=== PATIENT | female | born 1970 | race Two or more races ===

== ENCOUNTER → 2016-07-16 | Outpatient (CLI) | payer MEDICARE, OTHER ==
--- NOTE | 2016-07-16 10:52 | MM ---
Reason for exam: clinical finding. Last mammogram was performed 8 months ago. History: Family history of breast cancer in paternal cousin. Benign US biopsy breast VAD LT of the left breast, November 11, 2014. Excisional biopsy of the left breast, September 15, 2007. Benign US left CoreBiopsy of both breasts, August 15, 2007. Took hormonal contraceptives for 1 year beginning at age 19. Indicated problem(s): pain in the left breast. Physical Findings: Nurse did not find any significant physical abnormalities on exam. MG 3D Diag Mammo W/Cad ANTOLIN Bilateral CC and MLO view(s) were taken. Prior study comparison: November 04, 2015, bilateral MG 3d screening mammo w/cad. May 05, 2015, left breast MG 3d diag mammo w/cad LT. There are scattered fibroglandular densities. No suspicious calcifications are seen. No significant new findings when compared with previous films. These results were verbally communicated with the patient and result sheet given to the patient on 07/16/16. ASSESSMENT: Negative, BI-RAD 1 RECOMMENDATION: Return to routine screening mammogram schedule for both breasts. Manage patient on a clinical basis.
== END | disposition home or self-care (01) ==
LOC: RADMAMWWP 08:16
PROVIDERS: ATTEND Family Medicine
DX: N64.4 Mastodynia (principal)
CPT/HCPCS: G0204; G0279

== ENCOUNTER → 2017-09-13 | Outpatient (CLI) | payer MEDICARE, OTHER ==
--- NOTE | 2017-09-15 10:46 | MM ---
Reason for exam: screening (asymptomatic). Last mammogram was performed 1 year and 2 months ago. History: Family history of breast cancer in paternal cousin. Benign US biopsy breast VAD LT of the left breast, November 11, 2014. Excisional biopsy of the left breast, September 15, 2007. Benign US left CoreBiopsy of both breasts, August 15, 2007. Took hormonal contraceptives for 1 year beginning at age 19. Physical Findings: A clinical breast exam by your physician is recommended on an annual basis and results should be correlated with mammographic findings. MG 3D Screening Mammo W/Cad Bilateral CC and MLO view(s) were taken. Prior study comparison: July 16, 2016, bilateral MG 3d diag mammo w/cad ANTOLIN. November 04, 2015, bilateral MG 3d screening mammo w/cad. There are scattered fibroglandular densities. Previous mammotome biopsy in the left breast. No significant changes when compared with prior studies. ASSESSMENT: Benign, BI-RAD 2 RECOMMENDATION: Routine screening mammogram of both breasts in 1 year.
== END | disposition home or self-care (01) ==
LOC: RADMAMWWP 08:38
PROVIDERS: ATTEND Family Medicine
DX: Z12.31 Encounter for screening mammogram for malignant neoplasm of breast (principal)
CPT/HCPCS: 77063; 77067

== ENCOUNTER → 2018-09-19 | Outpatient (CLI) | payer MEDICARE, OTHER ==
--- NOTE | 2018-09-19 09:23 | MM ---
Reason for exam: clinical finding. Last mammogram was performed 1 year ago. History: Family history of breast cancer in paternal cousin. Benign US biopsy breast VAD LT of the left breast, November 11, 2014. Excisional biopsy of the left breast, September 15, 2007. Benign US left CoreBiopsy of both breasts, August 15, 2007. Taking hormonal contraceptives beginning at age 19. Indicated problem(s): pain in the left breast. Physical Findings: Nurse did not find any significant physical abnormalities on exam. MG 3D Diag Mammo W/Cad ANTOLIN Bilateral CC, MLO, and XCCL view(s) were taken. Prior study comparison: September 13, 2017, bilateral MG 3d screening mammo w/cad. July 16, 2016, bilateral MG 3d diag mammo w/cad ANTOLIN. There are scattered fibroglandular densities. Left biopsy marker noted. These results were verbally communicated with the patient and result sheet given to the patient on 09/19/18. ASSESSMENT: Negative, BI-RAD 1 RECOMMENDATION: Routine screening mammogram of both breasts in 1 year.
--- NOTE | 2018-09-19 09:24 | USB ---
Reason for exam: clinical finding. History: Family history of breast cancer in paternal cousin. Benign US biopsy breast VAD LT of the left breast, November 11, 2014. Excisional biopsy of the left breast, September 15, 2007. Benign US left CoreBiopsy of both breasts, August 15, 2007. Taking hormonal contraceptives beginning at age 19. Indicated problem(s): pain in the left breast. US Breast LT Left complete breast ultrasound includes all four quadrants, the retroareolar region and axilla. Finding demonstrates no cystic or solid lesion seen. These results were verbally communicated with the patient and result sheet given to the patient on 09/19/18. ASSESSMENT: Negative, BI-RAD 1 RECOMMENDATION: Routine screening mammogram of both breasts in 1 year. Manage patient on a clinical basis.
== END ==
LOC: RADMAMWWP 08:03
PROVIDERS: ATTEND Family Medicine
DX: N64.4 Mastodynia (principal)
CPT/HCPCS: 77066; 76641; G0279; 77062

== ENCOUNTER 2019-02-26 06:36 | Day surgery (SDC) | payer MEDICARE, OTHER ==
[2019-02-21 15:56] VITALS: BMI 39.5
[~2019-02-26 06:36] MED LIST: LACTATED RINGERS 1,000 ML IV SCH; LIDOCAINE 1% 20 ML VIAL (10MG/ML) FOR IV START INTRADERMA PRN
[2019-02-26 07:18] VITALS: TEMP 97.4
[2019-02-26 07:25] LABS: Glucose,Whole Blood 122 mg/dL (75-99)
[2019-02-26] MEDS ORDERED: LIDOCAINE 1% INJ 10MG/ML (20 ML MDV) ONE (07:36)
[2019-02-26] MEDS ORDERED: fentaNYL (PF) 50 MCG/ML 2 ML AMP ONE (07:36)
[2019-02-26] MEDS ORDERED: MIDAZOLAM 2 MG/2 ML VIAL ONE (07:36)
[2019-02-26] MEDS ORDERED: PROPOFOL 10 MG/ML 20 ML VIAL IV ONE (07:36)
--- NOTE | 2019-02-26 07:44 | P.GSHP ---
History of Present Illness H&P Date: 02/26/19 Chief Complaint: GERD Patient here today for upper endoscopy. Complaints of bad reflux. Also has complaints of upper abdominal pain and frequent stools after bowel movements. History of previous cholecystectomy. No rectal bleeding or melena. No dysphagia. Past Medical History Past Medical History: Asthma, Diabetes Mellitus, GERD/Reflux, Hypertension Additional Past Medical History / Comment(s): ASTHMA CHILD. TOLD A MASS/CYST ON LIVER, "NOT TO WORRY ABOUT IT." C/O GASTRITIS, ABD PAIN OCC FOR PAST MO. History of Any Multi-Drug Resistant Organisms: None Reported Past Surgical History: Back Surgery, Breast Surgery, Cholecystectomy, Tubal Ligation, Uterine Ablation Additional Past Surgical History / Comment(s): LT BREAST BIOPSY X3. NOVASURE ABLATION 2018. Past Anesthesia/Blood Transfusion Reactions: Motion Sickness Additional Past Anesthesia/Blood Transfusion Reaction / Comment(s): DONATES PLASMA Smoking Status: Never smoker - Past Family History Mother Family Medical History: Asthma Father Family Medical History: Hypertension Medications and Allergies Home Medications Medication Instructions Recorded Confirmed Type Ibuprofen [Motrin] 800 mg PO TID PRN 04/09/16 02/26/19 History Lisinopril (Unknown Dose) 1 tab PO DAILY 02/21/19 02/26/19 History Metformin (Unknown Dose) 1 tab PO DAILY 02/21/19 02/26/19 History Allergies Allergy/AdvReac Type Severity Reaction Status Date / Time No Known Allergies Allergy Verified 02/21/19 15:35 Surgical - Exam Vital Signs Temp Pulse Resp BP Pulse Ox 97.4 F L 70 14 113/70 98 02/26/19 07:14 02/26/19 07:14 02/26/19 07:14 02/26/19 07:14 02/26/19 07:14 Physical exam: General: Well-developed, well-nourished HEENT: Normocephalic, sclerae nonicteric Abdomen: Nontender, nondistended Extremities: No edema Neuro: Alert and oriented Results - Labs Abnormal Lab Results - Last 24 Hours (Table) 02/26/19 Range/Units 07:20 POC Glucose (mg/dL) 122 H (75-99) mg/dL Assessment and Plan (1) GERD (gastroesophageal reflux disease) Narrative/Plan: Will proceed with upper endoscopy at this time Current Visit: Yes Status: Acute Code(s): K21.9 - GASTRO-ESOPHAGEAL REFLUX DISEASE WITHOUT ESOPHAGITIS SNOMED Code(s): 800988210
--- NOTE | 2019-02-26 07:51 | P.PCN ---
Date of Procedure: 02/26/19 Procedure(s) Performed: Preoperative Dx: GERD Postoperative Dx: Mild distal esophagitis, mild gastritis Procedure: EGD with Bx Anesthesia: Sedation Endoscopist: Dr. Kim Specimens: Antrum, duodenum, distal esophagus Endoscopic Procedure: The patient was on the endoscopy table in the left decubitus position. The Olympus gastroscope was inserted into the oropharynx and passed under direct visualization to the region of the third portion of the duodenum. From that point the scope was slowly withdrawn inspecting all surfaces carefully. There were no neoplastic inflammatory or polypoid lesions throughout the duodenum. Biopsies of the duodenum took place. The pylorus was widely patent. The stomach was carefully inspected. There was gastritis present. Primarily in the prepyloric region. No ulcerations were seen. A few superficial erosions were identified. A biopsy of the antrum took place to rule out H. pylori. Retroflexion revealed a normal hiatus. The esophagus was then carefully examined. There was mild distal esophagitis present. This was less than 1 cm in length. This was non-circumferential. Biopsy of the distal esophagus took place. The remainder the esophagus appeared normal. The patient was then taken to the recovery room in stable condition per anesthesia guideli omar. Recommendations: Await biopsy results. Begin Prilosec and Carafate.
[2019-02-26 08:12] VITALS: BP 131/76; PULSE 78; RESP 18
== END 2019-02-26 08:25 | disposition home or self-care (01) ==
LOC: ORWHC2ENDO 06:36
PROVIDERS: ATTEND Surgery
DX: K21.0 Gastro-esophageal reflux disease with esophagitis (principal); E11.9 Type 2 diabetes mellitus without complications; I10 Essential (primary) hypertension; J45.909 Unspecified asthma, uncomplicated; K29.70 Gastritis, unspecified, without bleeding; Z79.84 Long term (current) use of oral hypoglycemic drugs; Z90.49 Acquired absence of other specified parts of digestive tract; Z98.51 Tubal ligation status; Z79.1 Long term (current) use of non-steroidal anti-inflammatories (NSAID)
CPT/HCPCS: 43239; 81025; 88305; 88312; J2250; J2001; J3010; J2704

== ENCOUNTER → 2020-06-05 | Outpatient (CLI) | payer MEDICARE, OTHER ==
--- NOTE | 2020-06-06 14:52 | MM ---
Reason for exam: screening (asymptomatic). Last mammogram was performed 1 year and 8 months ago. History: Family history of breast cancer in paternal cousin. Benign US biopsy breast VAD LT of the left breast, November 11, 2014. Excisional biopsy of the left breast, September 15, 2007. Benign US left CoreBiopsy of both breasts, August 15, 2007. Taking hormonal contraceptives beginning at age 19. Physical Findings: A clinical breast exam by your physician is recommended on an annual basis and results should be correlated with mammographic findings. MG 3D Screening Mammo W/Cad Bilateral CC and MLO view(s) were taken. Prior study comparison: September 19, 2018, bilateral MG 3d diag mammo w/cad ANTOLIN. September 13, 2017, bilateral MG 3d screening mammo w/cad. The breast tissue is almost entirely fat. Previous mammotome biopsy in the left breast. No significant changes when compared with prior studies. ASSESSMENT: Benign, BI-RAD 2 RECOMMENDATION: Routine screening mammogram of both breasts in 1 year.
== END | disposition home or self-care (01) ==
LOC: RADMAMWWP 14:43
PROVIDERS: ATTEND Family Medicine
DX: Z12.31 Encounter for screening mammogram for malignant neoplasm of breast (principal)
CPT/HCPCS: 77063; 77067

== ENCOUNTER 2020-07-02 09:09 | Emergency (ER) | payer MEDICARE, OTHER ==
[2020-07-02 09:29] LABS: Glucose,Whole Blood 163 mg/dL (75-99)
[2020-07-02] MEDS ORDERED: SODIUM CHLORIDE 0.9% 500 ML 500 ML IV STA (09:29)
[2020-07-02] MEDS ORDERED: ONDANSETRON 4 MG/2 ML VIAL IVP STA (09:29)
--- NOTE | 2020-07-02 09:33 | ED ---
General Adult HPI - General Chief complaint: Nausea/Vomiting/Diarrhea Stated complaint: High Fever Time Seen by Provider: 07/02/20 09:18 Source: patient Mode of arrival: ambulatory Limitations: no limitations - History of Present Illness Initial comments: Dictation was produced using [employer] dictation software. please excuse any grammatical, word or spelling errors. This patient was cared for during a federal and state declared state of emergenc y secondary to Covid 19 Chief Complaint: 49-year-old female with past medical history of diabetes presents with fever, nausea and vomiting for the last week. History of Present Illness: 49-year-old female she reports only history of diabetes. She's been feeling sick for approximately one week. She's been around other individuals who had similar symptoms. She was concerned about babitai ng Covid 19. She went to [facility] yesterday were they performed: Testing. She has not gotten the results yet. Patient returns to the emergency department because she still feels ill. Patient reports fever, nausea and vomiting that has have been worsening. She does not have any pain complaints. She has no sore throat. She has shortness of breath however she reports that she only has dyspnea when she is warned her mask. The ROS documented in this emergency department record has been reviewed and confirmed by me. Those systems with pertinent positive or negative responses have been documented in the HPI. All other systems are other negative and/or noncontributory. PHYSICAL EXAM: General Impression: Alert and oriented x3, not in acute distress HEENT: Normocephalic atraumatic, extra-ocular movements intact, pupils equal and reactive to light bilaterally, mucous membranes moist. Cardiovascular: Heart regular rate and rhythm Chest: Able to complete full sentences, no retractions, no tachypnea Abdomen: abdomen soft, non-tender, non-distended, no organomegaly Musculoskeletal: Pulses present and equal in all extremities, no peripheral edema Motor: no focal deficits noted Neurological: CN II-XII grossly intact, no focal motor or sensory deficits noted Skin: Intact with no visualized rashes Psych: Normal affect and mood ED course: 49-year-old female presents to the emergency department for 1 week of constitutional symptoms. vital signs upon arrival shows heart rate of 114, worse vital signs within acceptable limits. Laboratory evaluation obtained. CBC, coag panel, metabolic is unremarkable. Coronal virus test is positive. Chest x-ray shows infiltrates. This likely viral pneumonia. Patient observed in the emergency department. She is not hypoxic. Patient will be discharged. Return parameters discussed. - Related Data Home Medications Medication Instructions Recorded Confirmed Ibuprofen [Motrin] 800 mg PO TID PRN 04/09/16 02/26/19 Lisinopril (Unknown Dose) 1 tab PO DAILY 02/21/19 02/26/19 Metformin (Unknown Dose) 1 tab PO DAILY 02/21/19 02/26/19 Previous Rx's Medication Instructions Recorded Omeprazole [PriLOSEC] 20 mg PO AC-BRKFST #90 cap 02/26/19 Sucralfate [Carafate] 1 gm PO ACHS #120 tab 02/26/19 Allergies Allergy/AdvReac Type Severity Reaction Status Date / Time No Known Allergies Allergy Verified 07/02/20 09:15 Review of Systems ROS Statement: Those systems with pertinent positive or pertinent negative responses have been documented in the HPI. ROS Other: All systems not noted in ROS Statement are negative. Past Medical History Past Medical History: Asthma, Diabetes Mellitus, GERD/Reflux, Hypertension Additional Past Medical History / Comment(s): ASTHMA CHILD. TOLD A MASS/CYST ON LIVER, "NOT TO WORRY ABOUT IT." C/O GASTRITIS, ABD PAIN OCC FOR PAST MO. History of Any Multi-Drug Resistant Organisms: None Reported Past Surgical History: Back Surgery, Breast Surgery, Cholecystectomy, Tubal Ligation, Uterine Ablation Additional Past Surgical History / Comment(s): LT BREAST BIOPSY X3. NOVASURE ABLATION 2018. Past Anesthesia/Blood Transfusion Reactions: Motion Sickness Additional Past Anesthesia/Blood Transfusion Reaction / Comment(s): DONATES PLASMA Past Psychological History: No Psychological Hx Reported Past Alcohol Use History: None Reported Past Drug Use History: None Reported - Past Family History Mother Family Medical History: Asthma Father Family Medical History: Hypertension General Exam Limitations: no limitations Course Vital Signs 07/02/20 07/02/20 09:09 10:24 Temperature 99.2 F 100.7 F H Pulse Rate 114 H Respiratory 18 Rate Blood Pressure 115/83 O2 Sat by Pulse 99 Oximetry Medical Decision Making - Lab Data Result diagrams: 07/02/20 09:40 07/02/20 09:40 Lab Results 07/02/20 07/02/20 07/02/20 Range/Units 09:27 09:40 09:40 WBC 5.1 (3.8-10.6) k/uL RBC 5.44 H (3.80-5.40) m/uL Hgb 15.7 (11.4-16.0) gm/dL Hct 48.8 H (34.0-46.0) % MCV 89.6 (80.0-100.0) fL MCH 28.8 (25.0-35.0) pg MCHC 32.1 (31.0-37.0) g/dL RDW 13.1 (11.5-15.5) % Plt Count 195 (150-450) k/uL MPV 8.8 Neutrophils % 70 % Lymphocytes % 24 % Monocytes % 3 % Eosinophils % 0 % Basophils % 1 % Neutrophils # 3.6 (1.3-7.7) k/uL Lymphocytes # 1.2 (1.0-4.8) k/uL Monocytes # 0.2 (0-1.0) k/uL Eosinophils # 0.0 (0-0.7) k/uL Basophils # 0.1 (0-0.2) k/uL PT (9.0-12.0) sec INR (<1.2) APTT (22.0-30.0) sec Sodium (137-145) mmol/L Potassium (3.5-5.1) mmol/L Chloride (98-107) mmol/L Carbon Dioxide (22-30) mmol/L Anion Gap mmol/L BUN (7-17) mg/dL Creatinine (0.52-1.04) mg/dL Est GFR (CKD-EPI)AfAm (>60 ml/min/1.73 sqM) Est GFR (CKD-EPI)NonAf (>60 ml/min/1.73 sqM) Glucose (74-99) mg/dL POC Glucose (mg/dL) 163 H (75-99) mg/dL POC Glu Remodeler ID Monie Gamino Calcium (8.4-10.2) mg/dL Magnesium (1.6-2.3) mg/dL Total Bilirubin (0.2-1.3) mg/dL AST (14-36) U/L ALT (4-34) U/L Alkaline Phosphatase (38-126) U/L Total Protein (6.3-8.2) g/dL Albumin (3.5-5.0) g/dL Lipase (23-300) U/L Coronavirus (PCR) Detected A (Not Detectd) 07/02/20 07/02/20 Range/Units 09:40 09:40 WBC (3.8-10.6) k/uL RBC (3.80-5.40) m/uL Hgb (11.4-16.0) gm/dL Hct (34.0-46.0) % MCV (80.0-100.0) fL MCH (25.0-35.0) pg MCHC (31.0-37.0) g/dL RDW (11.5-15.5) % Plt Count (150-450) k/uL MPV Neutrophils % % Lymphocytes % % Monocytes % % Eosinophils % % Basophils % % Neutrophils # (1.3-7.7) k/uL Lymphocytes # (1.0-4.8) k/uL Monocytes # (0-1.0) k/uL Eosinophils # (0-0.7) k/uL Basophils # (0-0.2) k/uL PT 9.9 (9.0-12.0) sec INR 0.9 (<1.2) APTT 24.4 (22.0-30.0) sec Sodium 138 (137-145) mmol/L Potassium 4.8 (3.5-5.1) mmol/L Chloride 103 (98-107) mmol/L Carbon Dioxide 28 (22-30) mmol/L Anion Gap 7 mmol/L BUN 11 (7-17) mg/dL Creatinine 0.86 (0.52-1.04) mg/dL Est GFR (CKD-EPI)AfAm >90 (>60 ml/min/1.73 sqM) Est GFR (CKD-EPI)NonAf 80 (>60 ml/min/1.73 sqM) Glucose 185 H (74-99) mg/dL POC Glucose (mg/dL) (75-99) mg/dL POC Glu Remodeler ID Calcium 9.0 (8.4-10.2) mg/dL Magnesium 1.8 (1.6-2.3) mg/dL Total Bilirubin 0.5 (0.2-1.3) mg/dL AST 84 H (14-36) U/L ALT 77 H (4-34) U/L Alkaline Phosphatase 128 H (38-126) U/L Total Protein 8.1 (6.3-8.2) g/dL Albumin 4.2 (3.5-5.0) g/dL Lipase 71 (23-300) U/L Coronavirus (PCR) (Not Detectd) Disposition Clinical Impression: COVID-19 Disposition: HOME SELF-CARE Condition: Good Instructions (If sedation given, give patient instructions): Viral Pneumonia (ED), Fever in Adults (ED) Additional Instructions: Today you were evaluated for symptoms consistent with upper respiratory infection. There is concern that perhaps your symptomatology may represent Covid 19. Your are stable for discharge, however it is instructed to to seek i mmediate medical attention especially if you develop worsening symptoms especially respiratory distress. In the meantime please remain in quarantine for 14 days. For any other questions please contact Jw for here in emergency department or [facility] at [phone] Is patient prescribed a controlled substance at d/c from ED?: No Referrals: Markell Becker III, MD [Primary Care Provider] - 1-2 days Time of Disposition: 10:30
[2020-07-02 09:56] LABS: Basophils # (A) 0.1 k/uL (0-0.2); Basophils % (A) 1 %; Eosinophils % (A) 0 %; HCT 48.8 % (34.0-46.0); HGB 15.7 gm/dL (11.4-16.0); Lymphocytes # (A) 1.2 k/uL (1.0-4.8); Lymphocytes % (A) 24 %; MCH 28.8 pg (25.0-35.0); MCHC 32.1 g/dL (31.0-37.0); MCV 89.6 fL (80.0-100.0); Mean Platelet Volume 8.8; Monocytes # (A) 0.2 k/uL (0-1.0); Monocytes % (A) 3 %; Neutrophils # (A) 3.6 k/uL (1.3-7.7); Neutrophils % (A) 70 %; Platelet Count 195 k/uL (150-450); RBC 5.44 m/uL (3.80-5.40); RDW 13.1 % (11.5-15.5); WBC 5.1 k/uL (3.8-10.6)
[2020-07-02 10:07] LABS: ALT 77 U/L (4-34); AST 84 U/L (14-36); African American GFR (CKD) >90 (>60 ml/min/1.73 sqM); Albumin 4.2 g/dL (3.5-5.0); Alkaline Phosphatase 128 U/L (38-126); Anion Gap 7 mmol/L; Blood Urea Nitrogen 11 mg/dL (7-17); Carbon Dioxide 28 mmol/L (22-30); Chloride 103 mmol/L (98-107); Glucose 185 mg/dL (74-99); Lipase 71 U/L (23-300); Magnesium 1.8 mg/dL (1.6-2.3); Non-African American GFR(CKD) 80 (>60 ml/min/1.73 sqM); Potassium 4.8 mmol/L (3.5-5.1); Sodium 138 mmol/L (137-145); Total Bilirubin 0.5 mg/dL (0.2-1.3); Total Protein 8.1 g/dL (6.3-8.2)
[2020-07-02 10:11] LABS: INR 0.9 (<1.2); Partial Thromboplastin Time 24.4 sec (22.0-30.0); Prothrombin Time 9.9 sec (9.0-12.0)
--- NOTE | 2020-07-02 10:15 | XR ---
EXAMINATION TYPE: XR chest 1V portable DATE OF EXAM: 07/02/2020 COMPARISON: Prior chest x-ray 05/08/2012 HISTORY: Fever and weakness TECHNIQUE: Single frontal view of the chest is obtained. FINDINGS: Some patchy increased densities present bilaterally within the lungs. Patient is rotated. Cardiomediastinal silhouette is within normal limits accounting for rotation, there is a scoliotic cu rvature to the spine. No evident pneumothorax or pleural effusion. Bone mineralization is normal. IMPRESSION: Correlate for underlying pneumonia. Follow-up PA and lateral chest x-ray may be of benef it.
[2020-07-02 10:25] VITALS: TEMP 100.7
[2020-07-02 10:57] VITALS: BP 123/87; PULSE 102; RESP 17
== END 2020-07-02 10:56 | disposition home or self-care (01) ==
LOC: EC 09:09
DX: U07.1 COVID-19 (principal); R91.8 Other nonspecific abnormal finding of lung field; I10 Essential (primary) hypertension; E11.9 Type 2 diabetes mellitus without complications; Z79.84 Long term (current) use of oral hypoglycemic drugs; Z79.899 Other long term (current) drug therapy; Z90.49 Acquired absence of other specified parts of digestive tract
CPT/HCPCS: 36415; 93005; 80053; 83690; 83735; 85025; 85610; 85730; 87635; 71045; 99284; 96374; 96361; J2405

== ENCOUNTER → 2021-08-04 | Outpatient (CLI) | payer MEDICARE, OTHER ==
--- NOTE | 2021-08-05 10:14 | MM ---
Reason for exam: screening (asymptomatic). Last mammogram was performed 1 year and 2 months ago. History: Family history of breast cancer in paternal cousin. Benign US biopsy breast VAD LT of the left breast, November 11, 2014. Excisional biopsy of the left breast, September 15, 2007. Benign US left CoreBiopsy of both breasts, August 15, 2007. Taking hormonal contraceptives beginning at age 19. Physical Findings: A clinical breast exam by your physician is recommended on an annual basis and results should be correlated with mammographic findings. MG 3D Screening Mammo W/Cad Bilateral CC and MLO view(s) were taken. Prior study comparison: June 05, 2020, bilateral MG 3d screening mammo w/cad. September 19, 2018, bilateral MG 3d diag mammo w/cad ANTOLIN. The breast tissue is almost entirely fat. There is no discrete abnormality. No significant changes when compared with prior studies. ASSESSMENT: Negative, BI-RAD 1 RECOMMENDATION: Routine screening mammogram of both breasts in 1 year. Manage patient on a clinical basis.
== END ==
LOC: RADMAMWWP 09:18
PROVIDERS: ATTEND Family Medicine
DX: Z12.31 Encounter for screening mammogram for malignant neoplasm of breast (principal)
CPT/HCPCS: 77063; 77067

== ENCOUNTER → 2021-10-26 | Outpatient (CLI) | payer MEDICARE, OTHER ==
--- NOTE | 2021-10-26 16:22 | MR ---
EXAMINATION TYPE: MR lumbar spine wo con DATE OF EXAM: 10/26/2021 COMPARISON: HISTORY: Intervertebral disc disease w/radiculopathy, lumbosacral region, pain CONTRAST: 0 mL intravenous . TECHNIQUE: Multiplanar, multisequence images of the lumbar spine were acquired. FINDINGS: Cord terminates at the T12-L1 level. L5-S1: No significant disc bulge or disc herniation. No spinal canal stenosis. No foraminal stenosi s. Some facet hypertrophy is present. L4-L5: No significant disc bulge or disc herniation. No spinal canal stenosis. No foraminal stenosi s. Facet hypertrophy is present.. L3-L4: No significant disc bulge or disc herniation. No spinal canal stenosis. No foraminal stenosi s. . L2-L3: No significant disc bulge or disc herniation. No spinal canal stenosis. No foraminal stenosi s. . L1-L2: No significant disc bulge or disc herniation. No spinal canal stenosis. No foraminal stenosi s. . T12-L1: No significant disc bulge or disc herniation. No spinal canal stenosis. No foraminal stenos is. . IMPRESSION: 1. Facet hypertrophy L4-5 and L5-S1 with mild posterior lateral thecal sac compression. Minimal disc bulge may be present at these levels without stenosis.
== END | disposition home or self-care (01) ==
LOC: RADMRIMAIN 12:33
PROVIDERS: ATTEND Family Medicine
DX: M51.27 Other intervertebral disc displacement, lumbosacral region (principal); M51.17 Intervertebral disc disorders with radiculopathy, lumbosacral region; M47.897 Other spondylosis, lumbosacral region
CPT/HCPCS: 72148

== ENCOUNTER 2021-11-02 02:41 | Emergency (ER) | payer MEDICARE, OTHER ==
[2021-11-02 02:55] VITALS: RESP 18; TEMP 98
[2021-11-02] MEDS ORDERED: HYDROmorphone 0.5 MG/0.5 ML SYRINGE IM STA (04:05)
[2021-11-02] MEDS ORDERED: predniSONE 20 MG TAB PO STA (04:05)
[2021-11-02] MEDS ORDERED: ORPHENADRINE 30 MG/ML 2 ML VIAL IM STA (04:05)
--- NOTE | 2021-11-02 04:11 | ED ---
General Adult HPI - General Chief complaint: Extremity Problem,Nontraumatic Stated complaint: R Leg Pain Time Seen by Provider: 11/02/21 03:56 Source: patient, EMS Mode of arrival: EMS Limitations: no limitations - History of Present Illness -: days(s) Location: back, buttocks, left, lower extremity Quality: burning, aching Consistency: constant Improves with: none Worsens with: none Associated Symptoms: denies other symptoms - Related Data Home Medications Medication Instructions Recorded Confirmed Ibuprofen [Motrin] 800 mg PO TID PRN 04/09/16 02/26/19 Lisinopril (Unknown Dose) 1 tab PO DAILY 02/21/19 02/26/19 Metformin (Unknown Dose) 1 tab PO DAILY 02/21/19 02/26/19 Previous Rx's Medication Instructions Recorded Omeprazole [PriLOSEC] 20 mg PO AC-BRKFST #90 cap 02/26/19 Sucralfate [Carafate] 1 gm PO ACHS #120 tab 02/26/19 HYDROcodone/APAP 5-325MG [Avenel 1 tab PO Q4HR PRN 3 Days #18 tab 11/02/21 5-325] Allergies Allergy/AdvReac Type Severity Reaction Status Date / Time No Known Allergies Allergy Verified 07/02/20 09:15 Review of Systems ROS Statement: Those systems with pertinent positive or pertinent negative responses have been documented in the HPI. ROS Other: All systems not noted in ROS Statement are negative. Past Medical History Past Medical History: Asthma, Diabetes Mellitus, GERD/Reflux, Hypertension Additional Past Medical History / Comment(s): ASTHMA CHILD. TOLD A MASS/CYST ON LIVER, "NOT TO WORRY ABOUT IT." C/O GASTRITIS, ABD PAIN OCC FOR PAST MO. History of Any Multi-Drug Resistant Organisms: None Reported Past Surgical History: Back Surgery, Breast Surgery, Cholecystectomy, Tubal Ligation, Uterine Ablation Additional Past Surgical History / Comment(s): LT BREAST BIOPSY X3. NOVASURE ABLATION 2018. Past Anesthesia/Blood Transfusion Reactions: Motion Sickness Additional Past Anesthesia/Blood Transfusion Reaction / Comment(s): DONATES PLASMA Past Psychological History: No Psychological Hx Reported Past Alcohol Use History: None Reported Past Drug Use History: None Reported - Past Family History Mother Family Medical History: Asthma Father Family Medical History: Hypertension General Exam Limitations: no limitations General appearance: alert, in no apparent distress Head exam: Present: atraumatic, normocephalic Eye exam: Present: normal appearance GI/Abdominal exam: Present: soft. Absent: distended, tenderness, guarding, rigid, pulsatile mass Extremities exam: Present: normal inspection, normal capillary refill. Absent: tenderness, pedal edema, calf tenderness Right Hip exam: Present: normal inspection Upper Leg exam: Present: normal inspection, full ROM. Absent: tenderness, swelling Knee exam: Present: normal inspection, full ROM. Absent: tenderness, swelling Lower Leg exam: Present: normal inspection, full ROM. Absent: tenderness, swelling Ankle exam: Present: normal inspection, full ROM. Absent: tenderness, swelling Foot/Toe exam: Present: normal inspection, full ROM. Absent: tenderness, swelling Neurovascular tendon exam: Present: no vascular compromise. Absent: pulse deficit, abnormal cap refill Course Vital Signs 11/02/21 11/02/21 02:52 05:56 Temperature 98.0 F Pulse Rate 88 84 Respiratory 18 18 Rate Blood Pressure 164/90 154/93 O2 Sat by Pulse 99 97 Oximetry Medical Decision Making - Medical Decision Making Patient's 51-year-old woman with history and physical consistent with lumbar radiculopathy in the right leg. There is no red flag symptom or sign. Disposition Clinical Impression: Lumbar radicular pain Disposition: HOME SELF-CARE Condition: Good Instructions (If sedation given, give patient instructions): Lumbar Radiculopathy (ED) Prescriptions: HYDROcodone/APAP 5-325MG [Avenel 5-325] 1 tab PO Q4HR PRN 3 Days #18 tab PRN Reason: Pain Is patient prescribed a controlled substance at d/c from ED?: No Referrals: Markell Becker III, MD [Primary Care Provider] - 1-2 days
[2021-11-02] MEDS ORDERED: HYDROmorphone 1 MG/ML 1 ML SYRINGE IM STA (05:53)
[2021-11-02 05:57] VITALS: BP 154/93; PULSE 84
== END 2021-11-02 07:43 | disposition home or self-care (01) ==
LOC: EC 02:41
DX: M54.16 Radiculopathy, lumbar region (principal); E11.9 Type 2 diabetes mellitus without complications; I10 Essential (primary) hypertension; J45.909 Unspecified asthma, uncomplicated; Z79.84 Long term (current) use of oral hypoglycemic drugs; Z79.899 Other long term (current) drug therapy
CPT/HCPCS: 99284; 96372; J2360; J1170 ×2

== ENCOUNTER 2021-11-21 08:42 | Emergency (ER) | payer MEDICARE, OTHER ==
[2021-11-21 09:10] VITALS: BP 153/95; PULSE 74; RESP 16; TEMP 98.4
--- NOTE | 2021-11-21 09:52 | ED ---
Extremity Problem HPI - General Chief complaint: Extremity Problem,Nontraumatic Stated complaint: leg pain Time Seen by Provider: 11/21/21 09:13 Source: patient, RN notes reviewed Mode of arrival: ambulatory Limitations: no limitations - History of Present Illness Initial comments: This is a 51-year-old female who presents to the emergency department for right lower back and hip pain with numbness and tingling down the right leg. Patient states that she has had x-rays and MRIs, and has also taken the prescribed medication with little to no relief. Per the patient, Dr. Becker instructed her to come to the emergency department and to call him when she arrives. She does have a follow-up scheduled with her orthopedic surgeon on 11/25. Denies any loss of bowel/bladder control or saddle anesthesia. Denies any fevers, chills, sore throat, cough, dyspnea, chest pain, palpitations, abdominal pain, nausea, vomiting, diarrhea, or headaches. Onset/Timin -: week(s) Location: right, lower extremity - Related Data Home Medications Medication Instructions Recorded Confirmed Ibuprofen [Motrin] 800 mg PO Q8H PRN 04/09/16 11/10/21 Albuterol Inhaler [Ventolin Hfa 2 puff INHALATION RT-QID PRN 11/10/21 11/10/21 Inhaler] Naproxen 500 mg PO BID-W/MEALS PRN 11/10/21 11/10/21 Phentermine HCl [Adipex P] 15 mg PO DAILY 11/10/21 11/10/21 metFORMIN HCL [Glucophage XR] 750 mg PO W/BRKFST 11/10/21 11/10/21 sitaGLIPtin PHOSPHATE [Januvia] 100 mg PO DAILY 11/10/21 11/10/21 traMADol HCL 50 mg PO Q6H PRN 11/10/21 11/10/21 Previous Rx's Medication Instructions Recorded methylPREDNISolone Dose Pack 4 mg PO DIRECTED #1 packet 11/11/21 [Medrol Dose Pack] tiZANidine HCL [Zanaflex] 4 mg PO Q6HR PRN #12 tab 11/11/21 methylPREDNISolone Dose Pack 4 mg PO DIRECTED #21 tab 11/21/21 [Medrol Dose Pack] Allergies Allergy/AdvReac Type Severity Reaction Status Date / Time No Known Allergies Allergy Verified 11/21/21 09:10 Review of Systems ROS Statement: Those systems with pertinent positive or pertinent negative responses have been documented in the HPI. ROS Other: All systems not noted in ROS Statement are negative. Past Medical History Past Medical History: Asthma, Diabetes Mellitus, Eye Disorder, GERD/Reflux, Hypertension Additional Past Medical History / Comment(s): Chronic low back pain with past L sided sciatica much improved since L4 back surgery years ago, migraines, NIDDM t ype II, L eye retinal detachment/blindness, enlarged liver, occasional abdominal pain, gastritis, cellulitis L arm after cyst removal. History of Any Multi-Drug Resistant Organisms: None Reported Past Surgical History: Back Surgery, Breast Surgery, Cholecystectomy, Tubal Ligation, Uterine Ablation Additional Past Surgical History / Comment(s): L4 back surgery, D&C, L breast biopsy x2, EGD, colonoscopy, cyst removed from L arm. Past Anesthesia/Blood Transfusion Reactions: Motion Sickness Additional Past Anesthesia/Blood Transfusion Reaction / Comment(s): DONATES PLASMA Past Psychological History: No Psychological Hx Reported Smoking Status: Never smoker Past Alcohol Use History: None Reported Past Drug Use History: None Reported - Past Family History Mother Family Medical History: Asthma Additional Family Medical History / Comment(s): Mother from an asthmatic attack at the age of 46yrs. Father Family Medical History: Liver Disease Additional Family Medical History / Comment(s): Father of liver cirrhosis, he had ETOH abuse. General Exam Limitations: no limitations General appearance: alert, in distress Head exam: Present: atraumatic, normocephalic, normal inspection Respiratory exam: Present: normal lung sounds bilaterally. Absent: respiratory distress, wheezes, rales, rhonchi, stridor Cardiovascular Exam: Present: regular rate, normal rhythm, normal heart sounds. Absent: systolic murmur, diastolic murmur, rubs, gallop, clicks Right Hip exam: Present: normal inspection. Absent: full ROM (secondary to pain), tenderness, swelling, external rotation, internal rotation Upper Leg exam: Present: normal inspection. Absent: full ROM (secondary to pain), tenderness, swelling Neurovascular tendon exam: Present: no vascular compromise. Absent: pulse deficit, abnormal cap refill Neurological exam: Present: alert, oriented X3, CN II-XII intact Psychiatric exam: Present: normal affect, normal mood Skin exam: Present: warm, dry, intact, normal color. Absent: rash Course Vital Signs 11/21/21 11/21/21 09:07 11:12 Temperature 98.4 F 98.4 F Pulse Rate 74 74 Respiratory 16 16 Rate Blood Pressure 153/95 153/95 O2 Sat by Pulse 99 99 Oximetry Medical Decision Making - Medical Decision Making This is a 51-year-old female who presents to the emergency department for lumbar radiculopathy. I spoke with Dr. Becker, the patient's PCP. He advised that she get a dose of Decadron in the emergency department and be discharged with a Medrol Dosepak, with instructions to follow-up with her orthopedic surgeon next week. 10mg IM Decadron and Toradol provided and prescription for Medrol Dosepak sent to her pharmacy. Return precautions reviewed in depth, the patient is instructed to return to the emergency department with any new, worsening, or concerning symptoms. Red flag symptoms for back pain reviewed, including loss of bowel or bladder control and saddle anesthesia. Patient verbalized understanding. This case was discussed in detail with the attending ED physician. Presentation, findings, and treatment plan discussed in detail as well. Disposition Clinical Impression: Lumbar radiculopathy, right Disposition: HOME SELF-CARE Instructions (If sedation given, give patient instructions): Lumbar Radiculopathy (ED) Additional Instructions: Return to the emergency department with any new, worsening, or concerning symptoms. Take the Medrol Dosepak as prescribed. Do not take any other anti- inflammatories when taking this. You can take Tylenol. Follow-up with the orthopedic surgeon as scheduled next week. Follow up with your primary care provider next week. Prescriptions: methylPREDNISolone Dose Pack [Medrol Dose Pack] 4 mg PO DIRECTED #21 tab Is patient prescribed a controlled substance at d/c from ED?: No Referrals: Markell Becker III, MD [Primary Care Provider] - 1-2 days
[2021-11-21] MEDS ORDERED: KETOROLAC 15 MG/ML 1 ML VIAL IM STA (10:25)
[2021-11-21] MEDS ORDERED: DEXAMETHASONE SOD PHOSPHATE 10 MG/ML 1 ML VIAL IM STA (10:56)
== END 2021-11-21 11:12 | disposition home or self-care (01) ==
LOC: EC 08:42
DX: M54.16 Radiculopathy, lumbar region (principal); E11.9 Type 2 diabetes mellitus without complications; I10 Essential (primary) hypertension; J45.909 Unspecified asthma, uncomplicated; Z79.84 Long term (current) use of oral hypoglycemic drugs; Z79.899 Other long term (current) drug therapy
CPT/HCPCS: 99283; 96372; J1100; J1885

== ENCOUNTER 2022-02-02 16:51 | Emergency (ER) | payer MEDICARE, OTHER ==
[2022-02-02 16:54] VITALS: RESP 18; TEMP 98.2
--- NOTE | 2022-02-02 17:15 | ED ---
General Adult HPI - General Chief complaint: ENT Stated complaint: Dizziness, facial swelling Time Seen by Provider: 02/02/22 16:56 Source: patient, RN notes reviewed Mode of arrival: ambulatory - History of Present Illness Initial comments: Patient is a 51-year-old female presents to the emergency department with complaints of facial swelling, dizziness and constipation. She reports that she has been having constipation ongoing for approximately 1-2 months with bowel movements being infrequent; she states that her bowel movements are typically 4- 7 days apart now and previously she was having regular bowel movements. She also complains of approximately a 20 pound weight loss over that time of her constipation. She denies any nausea, vomiting, abdominal pain, rectal pain or changes in stool consistency including the presence of blood or mucus. In regards to her dizziness she reports that she has had dizziness ongoing for approximately 1 week without any known aggravating or alleviating factors. She denies any headache, sinus congestion or pressure, ear pain, tinnitus, earache, sore throat or nasal drainage. She reports that she just started to develop fac ial swelling today but denies any tongue or lip swelling. She reports that she has been on steroids for approximately one month now for lower back pain with right-sided sciatica. Of note reviewing records reveals that she has been on multiple courses of methylprednisolone dose pack since November of this year. She states that in addition to the steroids that her blood sugars have been uncontrolled. She acknowledges that her blood pressure was elevated in triage and states that previously she was on lisinopril lites due to muscle spasms was taken off the medication and does not believe that a hypertensive agent was added back on board. She denies any chest pain, shortness of breath, fevers or chills. In addition to her diabetic, hypertension and chronic back pain history she has past medical history significant for asthma, GERD, migraines and hepatomegaly. She denies any other complaints or concerns at this time. - Related Data Home Medications Medication Instructions Recorded Confirmed metFORMIN HCL [Glucophage XR] 750 mg PO W/BRKFST 11/10/21 11/10/21 sitaGLIPtin PHOSPHATE [Januvia] 100 mg PO DAILY 11/10/21 11/10/21 oxyCODONE HCL [oxyCODONE HCL (IR)] 30 mg PO TID PRN 02/02/22 02/02/22 predniSONE 10 mg PO DAILY 02/02/22 02/02/22 Allergies Allergy/AdvReac Type Severity Reaction Status Date / Time No Known Allergies Allergy Verified 02/02/22 18:37 Review of Systems ROS Statement: Those systems with pertinent positive or pertinent negative responses have been documented in the HPI. ROS Other: All systems not noted in ROS Statement are negative. Past Medical History Past Medical History: Asthma, Diabetes Mellitus, Eye Disorder, GERD/Reflux, Hypertension Additional Past Medical History / Comment(s): Chronic low back pain with past L sided sciatica much improved since L4 back surgery years ago, migraines, NIDDM type II, L eye retinal detachment/blindness, enlarged liver, occasional abdominal pain, gastritis, cellulitis L arm after cyst removal. History of Any Multi-Drug Resistant Organisms: None Reported Past Surgical History: Back Surgery, Breast Surgery, Cholecystectomy, Tubal Ligation, Uterine Ablation Additional Past Surgical History / Comment(s): L4 back surgery, D&C, L breast biopsy x2, EGD, colonoscopy, cyst removed from L arm. Past Anesthesia/Blood Transfusion Reactions: Motion Sickness Additional Past Anesthesia/Blood Transfusion Reaction / Comment(s): DONATES PLASMA Past Psychological History: No Psychological Hx Reported Smoking Status: Never smoker Past Alcohol Use History: None Reported Past Drug Use History: None Reported - Past Family History Mother Family Medical History: Asthma Additional Family Medical History / Comment(s): Mother from an asthmatic attack at the age of 46yrs. Father Family Medical History: Liver Disease Additional Family Medical History / Comment(s): Father of liver cirrhosis, he had ETOH abuse. General Exam Limitations: no limitations General appearance: alert, in no apparent distress Head exam: Present: atraumatic, normocephalic, normal inspection Eye exam: Present: normal appearance, PERRL, EOMI. Absent: scleral icterus, conjunctival injection, nystagmus, periorbital swelling ENT exam: Present: normal exam, normal oropharynx, mucous membranes moist, TM's normal bilaterally Expanded Ear exam: Present: normal external inspection Mouth exam: Present: normal external inspection Teeth exam: Present: normal inspection Throat exam: normal inspection Neck exam: Present: normal inspection, full ROM. Absent: tenderness, lymphadenopathy, thyromegaly Respiratory exam: Present: normal lung sounds bilaterally. Absent: respiratory distress, wheezes, rales, rhonchi, stridor Cardiovascular Exam: Present: regular rate, normal rhythm, normal heart sounds. Absent: systolic murmur, diastolic murmur, rubs, gallop, clicks GI/Abdominal exam: Present: soft, normal bowel sounds. Absent: distended, tenderness, guarding, rebound, rigid Rectal exam: Present: deferred Extremities exam: Present: normal inspection, full ROM, normal capillary refill. Absent: tenderness, pedal edema, joint swelling, calf tenderness Back exam: Present: normal inspection Neurological exam: Present: alert, oriented X3, CN II-XII intact Psychiatric exam: Present: normal affect, normal mood Skin exam: Present: warm, dry, intact, normal color. Absent: rash Course Vital Signs 02/02/22 16:52 Temperature 98.2 F Pulse Rate 62 Respiratory 18 Rate Blood Pressure 184/126 O2 Sat by Pulse 100 Oximetry Medical Decision Making - Medical Decision Making 51-year-old known diabetic with complaints of constipation dizziness and swelling face with reported uncontrolled diabetes and extensive steroid use over the last 3 months. No nausea, vomiting, fevers, chills, shortness of breath, or chest pain. Weight loss reported. High probability for uncontrolled diabetes contributing to symptoms and collins face secondary to steroid use however will check KUB along with CBC, TSH and CMP. No need for analgesics, IV fluids or supportive care at this time. Will monitor closely. Laboratory studies show elevated liver enzymes and alkaline phosphatase near baseline likely secondary to hepatomegaly. Also with mild dehydration and uncontrolled controlled blood sugar. Will give IV fluid bolus and add serum acetone to blood work. KUB with no acute abdominal process noted. Still awaiting TSH results. Acetone and TSH normal. Patient tolerated IV fluids well. Long discussion with patient regarding utilization of steroids for prolonged periods of time and side effects. Also discussed the need for glycemic control and consequences of uncontrolled diabetes. No indication for admission or further IV medication. Encouraged close follow-up with her primary care provider for hypertensive and glycemic control. Case discussed with Dr. Vu. - Lab Data Result diagrams: 02/02/22 17:18 02/02/22 17:18 Lab Results 02/02/22 02/02/22 Range/Units 17:18 17:18 WBC 9.7 (3.8-10.6) k/uL RBC 4.47 (3.80-5.40) m/uL Hgb 13.4 (11.4-16.0) gm/dL Hct 43.4 (34.0-46.0) % MCV 97.1 (80.0-100.0) fL MCH 30.1 (25.0-35.0) pg MCHC 31.0 (31.0-37.0) g/dL RDW 13.6 (11.5-15.5) % Plt Count 290 (150-450) k/uL MPV 8.1 Neutrophils % 85 % Lymphocytes % 11 % Monocytes % 3 % Eosinophils % 0 % Basophils % 0 % Neutrophils # 8.3 H (1.3-7.7) k/uL Lymphocytes # 1.1 (1.0-4.8) k/uL Monocytes # 0.3 (0-1.0) k/uL Eosinophils # 0.0 (0-0.7) k/uL Basophils # 0.0 (0-0.2) k/uL Sodium 134 L (137-145) mmol/L Potassium 4.6 (3.5-5.1) mmol/L Chloride 100 (98-107) mmol/L Carbon Dioxide 26 (22-30) mmol/L Anion Gap 8 mmol/L BUN 19 H (7-17) mg/dL Creatinine 0.84 (0.52-1.04) mg/dL Est GFR (CKD-EPI)AfAm >90 (>60 ml/min/1.73 sqM) Est GFR (CKD-EPI)NonAf 80 (>60 ml/min/1.73 sqM) Glucose 395 H (74-99) mg/dL Calcium 9.5 (8.4-10.2) mg/dL Total Bilirubin 0.4 (0.2-1.3) mg/dL AST 75 H (14-36) U/L ALT 76 H (4-34) U/L Alkaline Phosphatase 138 H (38-126) U/L Total Protein 7.1 (6.3-8.2) g/dL Albumin 4.1 (3.5-5.0) g/dL TSH 0.747 (0.465-4.680) mIU/L - Radiology Data Radiology results: report reviewed, image reviewed Two-view upright KUB findings there is no signs of intestinal obstruction or pneumoperitoneum. Fecal pattern is normal. Lung bases are clear. There are clips from cholecystectomy. Impression nonacute abdomen. Disposition Clinical Impression: Hyperglycemia without ketosis, Dehydration Disposition: HOME SELF-CARE Condition: Stable Instructions (If sedation given, give patient instructions): Type 2 Diabetes Management for Adults (ED) Additional Instructions: Please continue to drink plenty of fluids avoiding caffeinated products and sugary beverages. Please continue to take her diabetic medications as prescribed. Please follow-up closely with your primary care provider for improved glycemic and hypertensive control. Please return to the Emergency Department if symptoms worsen or any other concerns. Is patient prescribed a controlled substance at d/c from ED?: No Referrals: Markell Becker III, MD [Primary Care Provider] - 1-2 days Time of Disposition: 19:07
[2022-02-02 17:31] LABS: Basophils % (A) 0 %; Eosinophils % (A) 0 %; HCT 43.4 % (34.0-46.0); HGB 13.4 gm/dL (11.4-16.0); Lymphocytes # (A) 1.1 k/uL (1.0-4.8); Lymphocytes % (A) 11 %; MCH 30.1 pg (25.0-35.0); MCV 97.1 fL (80.0-100.0); Mean Platelet Volume 8.1; Monocytes # (A) 0.3 k/uL (0-1.0); Monocytes % (A) 3 %; Neutrophils # (A) 8.3 k/uL (1.3-7.7); Neutrophils % (A) 85 %; Platelet Count 290 k/uL (150-450); RBC 4.47 m/uL (3.80-5.40); RDW 13.6 % (11.5-15.5); WBC 9.7 k/uL (3.8-10.6)
[2022-02-02 17:42] LABS: ALT 76 U/L (4-34); AST 75 U/L (14-36); African American GFR (CKD) >90 (>60 ml/min/1.73 sqM); Albumin 4.1 g/dL (3.5-5.0); Alkaline Phosphatase 138 U/L (38-126); Anion Gap 8 mmol/L; Blood Urea Nitrogen 19 mg/dL (7-17); Calcium 9.5 mg/dL (8.4-10.2); Carbon Dioxide 26 mmol/L (22-30); Chloride 100 mmol/L (98-107); Glucose 395 mg/dL (74-99); Non-African American GFR(CKD) 80 (>60 ml/min/1.73 sqM); Potassium 4.6 mmol/L (3.5-5.1); Sodium 134 mmol/L (137-145); Total Bilirubin 0.4 mg/dL (0.2-1.3); Total Protein 7.1 g/dL (6.3-8.2)
--- NOTE | 2022-02-02 17:53 | XR ---
EXAMINATION TYPE: XR KUB DATE OF EXAM: 02/02/2022 COMPARISON: NONE HISTORY: Constipation TECHNIQUE: 2 views upright FINDINGS: There is no sign of intestinal obstruction or pneumoperitoneum. Fecal pattern is normal. Shania ng bases are clear. There are clips from cholecystectomy. IMPRESSION: Nonacute abdomen.
[2022-02-02] MEDS ORDERED: SODIUM CHLORIDE 0.9% 1,000 ML IV STA (18:07)
[2022-02-02 20:19] VITALS: BP 142/92; PULSE 55
[2022-02-02 20:19] LABS: Glucose,Whole Blood 299 mg/dL (70-110)
== END 2022-02-02 20:27 | disposition home or self-care (01) ==
LOC: EC 16:51
DX: R73.9 Hyperglycemia, unspecified (principal); J45.909 Unspecified asthma, uncomplicated; I10 Essential (primary) hypertension
CPT/HCPCS: 36415; 74018; 80053; 82009; 84443; 85025; 96360; 99284

== ENCOUNTER 2022-02-05 15:37 | Emergency (ER) | payer MEDICARE, OTHER ==
[2022-02-05 15:48] VITALS: RESP 20; TEMP 98
[2022-02-05] MEDS ORDERED: MECLIZINE 12.5 MG TAB PO STA (18:04)
[2022-02-05] MEDS ORDERED: SODIUM CHLORIDE 0.9% 1,000 ML IV STA (18:04)
[2022-02-05] MEDS ORDERED: METOCLOPRAMIDE 5 MG/ML 2 ML VIAL IVP STA (18:05)
--- NOTE | 2022-02-05 18:08 | ED ---
General Adult HPI - General Chief complaint: Dizziness Stated complaint: Dizziness, nausea Time Seen by Provider: 02/05/22 17:54 Source: patient Mode of arrival: ambulatory Limitations: no limitations - History of Present Illness Initial comments: Patient is a 51-year-old female presenting with chief complaint of dizziness. History of diabetes, hypertension, asthma, GERD. Patient states that she has been feeling lightheaded today. She also admits to nausea and abdominal pain. Abdominal pain is primarily located in the epigastric region. She denies any chest pain or shortness of breath. Denies dysuria, hematuria, urgency, f requency, flank pain, diarrhea, hematochezia, melena, URI-like symptoms, fever, chills, weakness, palpitations. - Related Data Home Medications Medication Instructions Recorded Confirmed metFORMIN HCL [Glucophage XR] 750 mg PO BID 11/10/21 02/05/22 oxyCODONE HCL [oxyCODONE HCL (IR)] 30 mg PO TID PRN 02/02/22 02/05/22 Empagliflozin [Jardiance] 25 mg PO DAILY 02/05/22 02/05/22 Previous Rx's Medication Instructions Recorded Cephalexin [Keflex] 500 mg PO Q12HR 7 Days #14 cap 02/05/22 Ondansetron Odt [Zofran Odt] 4 mg PO Q8HR PRN #10 tab 02/05/22 Allergies Allergy/AdvReac Type Severity Reaction Status Date / Time No Known Allergies Allergy Verified 02/05/22 19:42 Review of Systems ROS Statement: Those systems with pertinent positive or pertinent negative responses have been documented in the HPI. ROS Other: All systems not noted in ROS Statement are negative. Past Medical History Past Medical History: Asthma, Diabetes Mellitus, Eye Disorder, GERD/Reflux, Hypertension Additional Past Medical History / Comment(s): Chronic low back pain with past L sided sciatica much improved since L4 back surgery years ago, migraines, NIDDM type II, L eye retinal detachment/blindness, enlarged liver, occasional abdominal pain, gastritis, cellulitis L arm after cyst removal. History of Any Multi-Drug Resistant Organisms: None Reported Past Surgical History: Back Surgery, Breast Surgery, Cholecystectomy, Tubal Ligation, Uterine Ablation Additional Past Surgical History / Comment(s): L4 back surgery, D&C, L breast biopsy x2, EGD, colonoscopy, cyst removed from L arm. Past Anesthesia/Blood Transfusion Reactions: Motion Sickness Additional Past Anesthesia/Blood Transfusion Reaction / Comment(s): DONATES PLASMA Past Psychological History: No Psychological Hx Reported Smoking Status: Never smoker Past Alcohol Use History: None Reported Past Drug Use History: None Reported - Past Family History Mother Family Medical History: Asthma Additional Family Medical History / Comment(s): Mother from an asthmatic attack at the age of 46yrs. Father Family Medical History: Liver Disease Additional Family Medical History / Comment(s): Father of liver cirrhosis, he had ETOH abuse. General Exam Limitations: no limitations General appearance: alert, in no apparent distress Head exam: Present: atraumatic, normocephalic, normal inspection Eye exam: Present: normal appearance, EOMI. Absent: scleral icterus, periorbital swelling Neck exam: Present: normal inspection Respiratory exam: Present: normal lung sounds bilaterally. Absent: respiratory distress, wheezes, rales, rhonchi, stridor Cardiovascular Exam: Present: regular rate, normal rhythm, normal heart sounds. Absent: systolic murmur, diastolic murmur, rubs, gallop, clicks GI/Abdominal exam: Present: soft, tenderness (Mild, diffuse). Absent: distended, guarding, rebound, rigid Neurological exam: Present: alert, oriented X3, CN II-XII intact Psychiatric exam: Present: normal affect, normal mood Skin exam: Present: warm, dry, intact, normal color. Absent: rash Course Vital Signs 02/05/22 02/05/22 02/05/22 15:45 18:37 18:59 Temperature 98 F Pulse Rate 84 86 68 Respiratory 20 20 20 Rate Blood Pressure 162/104 156/98 134/75 O2 Sat by Pulse 99 98 98 Oximetry EKG Findings - EKG Comments: EKG Findings:: Sinus rhythm rate of 83. LA interval 120. QRS duration 92. QT/QTC 341/381. Normal axis. No ischemic ST or T-wave changes. Medical Decision Making - Medical Decision Making Patient is a 51-year-old female presenting with chief complaint of dizziness, nausea, abdominal pain. Patient states that symptoms started today. On exami nation heart and lungs are clear to auscultation, there is mild diffuse abdominal tenderness on palpation. No leukocytosis. There is noted transaminitis, appears to be more elevated than previous values. Alk phos is normal. Urine shows signs of UTI. Patient is negative for coronavirus. EKG showed no acute changes. Acute abdominal series with chest x-ray showed no acute findings. Ultrasound of the upper abdomen shows no acute findings. Hepatitis panel was drawn. Patient was given dose of Rocephin for UTI, will be provided with prescription for Keflex 500 mg twice a day for 10 days. Patient was instructed to follow-up with her PCP on Tuesday to discuss elevated LFTs results hepatitis panel. Report back to ER with any new or worsening symptoms. Discussed return parameters answered all questions. Patient conveyed verbal understanding and agreed to the plan. I discussed this case with my attending Dr. Jones. - Lab Data Result diagrams: 02/05/22 18:30 02/05/22 18:30 Lab Results 02/05/22 02/05/22 02/05/22 Range/Units 18:30 18:30 18:30 WBC 9.6 (3.8-10.6) k/uL RBC 5.01 (3.80-5.40) m/uL Hgb 15.2 (11.4-16.0) gm/dL Hct 48.1 H (34.0-46.0) % MCV 96.1 (80.0-100.0) fL MCH 30.3 (25.0-35.0) pg MCHC 31.5 (31.0-37.0) g/dL RDW 13.6 (11.5-15.5) % Plt Count 291 (150-450) k/uL MPV 7.8 Neutrophils % 65 % Lymphocytes % 28 % Monocytes % 4 % Eosinophils % 2 % Basophils % 1 % Neutrophils # 6.2 (1.3-7.7) k/uL Lymphocytes # 2.7 (1.0-4.8) k/uL Monocytes # 0.4 (0-1.0) k/uL Eosinophils # 0.1 (0-0.7) k/uL Basophils # 0.0 (0-0.2) k/uL Sodium 140 (137-145) mmol/L Potassium 4.0 (3.5-5.1) mmol/L Chloride 101 (98-107) mmol/L Carbon Dioxide 31 H (22-30) mmol/L Anion Gap 8 mmol/L BUN 13 (7-17) mg/dL Creatinine 0.91 (0.52-1.04) mg/dL Est GFR (CKD-EPI)AfAm 84 (>60 ml/min/1.73 sqM) Est GFR (CKD-EPI)NonAf 73 (>60 ml/min/1.73 sqM) Glucose 153 H (74-99) mg/dL Plasma Lactic Acid Emile 1.7 (0.7-2.0) mmol/L Calcium 10.3 H (8.4-10.2) mg/dL Total Bilirubin 1.0 (0.2-1.3) mg/dL AST 119 H (14-36) U/L ALT 121 H (4-34) U/L Alkaline Phosphatase 125 (38-126) U/L Troponin I (0.000-0.034) ng/mL Total Protein 8.4 H (6.3-8.2) g/dL Albumin 4.7 (3.5-5.0) g/dL Amylase 69 (30-110) U/L Lipase 69 (23-300) U/L Urine Color Urine Appearance (Clear) Urine pH (5.0-8.0) Ur Specific [place] (1.001-1.035) Urine Protein (Negative) Urine Glucose (UA) (Negative) Urine Ketones (Negative) Urine Blood (Negative) Urine Nitrite (Negative) Urine Bilirubin (Negative) Urine Urobilinogen (<2.0) mg/dL Ur Leukocyte Esterase (Negative) Urine RBC (0-5) /hpf Urine WBC (0-5) /hpf Ur Squamous Epith Cells (0-4) /hpf Urine Bacteria (None) /hpf Urine Mucus (None) /hpf Coronavirus (PCR) (Not Detectd) 02/05/22 02/05/22 02/05/22 Range/Units 18:30 18:30 18:30 WBC (3.8-10.6) k/uL RBC (3.80-5.40) m/uL Hgb (11.4-16.0) gm/dL Hct (34.0-46.0) % MCV (80.0-100.0) fL MCH (25.0-35.0) pg MCHC (31.0-37.0) g/dL RDW (11.5-15.5) % Plt Count (150-450) k/uL MPV Neutrophils % % Lymphocytes % % Monocytes % % Eosinophils % % Basophils % % Neutrophils # (1.3-7.7) k/uL Lymphocytes # (1.0-4.8) k/uL Monocytes # (0-1.0) k/uL Eosinophils # (0-0.7) k/uL Basophils # (0-0.2) k/uL Sodium (137-145) mmol/L Potassium (3.5-5.1) mmol/L Chloride (98-107) mmol/L Carbon Dioxide (22-30) mmol/L Anion Gap mmol/L BUN (7-17) mg/dL Creatinine (0.52-1.04) mg/dL Est GFR (CKD-EPI)AfAm (>60 ml/min/1.73 sqM) Est GFR (CKD-EPI)NonAf (>60 ml/min/1.73 sqM) Glucose (74-99) mg/dL Plasma Lactic Acid Emile (0.7-2.0) mmol/L Calcium (8.4-10.2) mg/dL Total Bilirubin (0.2-1.3) mg/dL AST (14-36) U/L ALT (4-34) U/L Alkaline Phosphatase (38-126) U/L Troponin I 0.028 (0.000-0.034) ng/mL Total Protein (6.3-8.2) g/dL Albumin (3.5-5.0) g/dL Amylase (30-110) U/L Lipase (23-300) U/L Urine Color Yellow Urine Appearance Clear (Clear) Urine pH 5.5 (5.0-8.0) Ur Specific [place] 1.039 H (1.001-1.035) Urine Protein Negative (Negative) Urine Glucose (UA) 4+ H (Negative) Urine Ketones 1+ H (Negative) Urine Blood Negative (Negative) Urine Nitrite Positive H (Negative) Urine Bilirubin Negative (Negative) Urine Urobilinogen <2.0 (<2.0) mg/dL Ur Leukocyte Esterase Trace H (Negative) Urine RBC 1 (0-5) /hpf Urine WBC 11 H (0-5) /hpf Ur Squamous Epith Cells 3 (0-4) /hpf Urine Bacteria Occasional H (None) /hpf Urine Mucus Few H (None) /hpf Coronavirus (PCR) Not Detected (Not Detectd) Disposition Clinical Impression: UTI (urinary tract infection), Transaminitis Disposition: HOME SELF-CARE Condition: Good Instructions (If sedation given, give patient instructions): Urinary Tract Infection in Women (ED), Dizziness (ED) Additional Instructions: Follow-up with PCP on Tuesday to review labs and address elevated liver enzymes. Take medication as prescribed. Report back to ER with any new or worsening symptoms. Prescriptions: Cephalexin [Keflex] 500 mg PO Q12HR 7 Days #14 cap Ondansetron Odt [Zofran Odt] 4 mg PO Q8HR PRN #10 tab PRN Reason: Nausea Is patient prescribed a controlled substance at d/c from ED?: No Referrals: Markell Becker III, MD [Primary Care Provider] - 1-2 days Time of Disposition: 21:30
[2022-02-05 18:54] LABS: Basophils % (A) 1 %; Eosinophils # (A) 0.1 k/uL (0-0.7); Eosinophils % (A) 2 %; HCT 48.1 % (34.0-46.0); HGB 15.2 gm/dL (11.4-16.0); Lymphocytes # (A) 2.7 k/uL (1.0-4.8); Lymphocytes % (A) 28 %; MCH 30.3 pg (25.0-35.0); MCHC 31.5 g/dL (31.0-37.0); MCV 96.1 fL (80.0-100.0); Mean Platelet Volume 7.8; Monocytes # (A) 0.4 k/uL (0-1.0); Monocytes % (A) 4 %; Neutrophils # (A) 6.2 k/uL (1.3-7.7); Neutrophils % (A) 65 %; Platelet Count 291 k/uL (150-450); RBC 5.01 m/uL (3.80-5.40); RDW 13.6 % (11.5-15.5); WBC 9.6 k/uL (3.8-10.6)
[2022-02-05 19:01] LABS: Appearance,Urine Clear (Clear); Bacteria,Urine Occasional /hpf; Bilirubin,Urine Negative (Negative); Blood,Urine Negative (Negative); Color,Urine Yellow; Glucose,Urine (UA) 4+ (Negative); Ketones,Urine 1+ (Negative); Leukocyte Esterase,Urine Trace (Negative); Mucus,Urine Few /hpf; Nitrite,Urine Positive (Negative); PH, Urine 5.5 (5.0-8.0); Protein,Urine Negative (Negative); RBC,Urine 1 /hpf (0-5); Specific Gravity,Urine 1.039 (1.001-1.035); Squamous Epithelial Cell,Urine 3 /hpf (0-4); Urobilinogen,Urine <2.0 mg/dL (<2.0); WBC,Urine 11 /hpf (0-5)
[2022-02-05 19:02] LABS: Albumin 4.7 g/dL (3.5-5.0); Calcium 10.3 mg/dL (8.4-10.2); Total Protein 8.4 g/dL (6.3-8.2)
[2022-02-05 19:03] VITALS: BP 134/75; PULSE 68
[2022-02-05] MEDS ORDERED: cefTRIAXone IN SWFI 1,000 MG/10 ML SYRINGE IVP STA (19:36)
--- NOTE | 2022-02-05 20:07 | XR ---
EXAMINATION TYPE: XR abdomen acute w cxr DATE OF EXAM: 02/05/2022 COMPARISON: NONE HISTORY: Abnormal pain TECHNIQUE: 5 views FINDINGS: Heart and mediastinum are normal. Lungs are clear. Diaphragm is normal. Bony thorax is inta ct. Bowel gas pattern is normal. No sign of intestinal obstruction or pneumoperitoneum. There are clips f rom cholecystectomy. There are no pathologic calcifications over the kidneys. IMPRESSION: Normal chest. No acute abdomen.
--- NOTE | 2022-02-05 20:21 | US ---
EXAMINATION TYPE: US abdomen limited DATE OF EXAM: 02/05/2022 COMPARISON: NONE CLINICAL HISTORY: elevated LFTs and upper abdominal pain. epigastric pain, elevated lft's, h/o cholec ystectomy TECHNIQUE: Multiple sonographic images of the right upper quadrant are obtained. FINDINGS: EXAM MEASUREMENTS: Liver Length: 13.7 cm Gallbladder Wall: Surgically absent CBD: 0.6 cm Right Kidney: 11.0 x 4.4 x 5.3 cm DISTRIBUTING CLERK NOTES:bowel gas limits study Pancreas: not seen due to bowel gas Liver: difficult to penetrate, left lateral lobe cyst = 0.9cm Gallbladder: Surgically absent Evidence for sonographic Cueto's sign: no CBD: wnl Right Kidney: wnl IMPRESSION: There is cholecystectomy. No dilated ducts. Small cyst in the left lobe of the liver. No solid liver mass. No ascites.
[2022-02-06 01:52] LABS: Hepatitis A Antibody IgM Nonreactive (Nonreactive); Hepatitis B Core IgM Nonreactive (Nonreactive); Hepatitis B Surface Antigen Nonreactive (Nonreactive); Hepatitis C IgG Antibody Nonreactive (Nonreactive)
== END 2022-02-05 22:46 | disposition home or self-care (01) ==
LOC: EC 15:37
DX: N39.0 Urinary tract infection, site not specified (principal); R74.01 Elevation of levels of liver transaminase levels; J45.909 Unspecified asthma, uncomplicated; E11.9 Type 2 diabetes mellitus without complications; I10 Essential (primary) hypertension; Z20.822 Contact with and (suspected) exposure to COVID-19; Z79.84 Long term (current) use of oral hypoglycemic drugs
CPT/HCPCS: 36415; 93005; 80053; 80074; 82150; 83605; 83690; 84484; 85025; 81001; 87086; 87077; 87186; 87635; 74022; 76705; 99284; 96374; 96375; 96361; J2765; J0696

== ENCOUNTER → 2022-02-08 | Outpatient (CLI) | payer MEDICARE, OTHER ==
--- NOTE | 2022-02-09 04:20 | MR ---
EXAMINATION TYPE: MR hip RT wo con DATE OF EXAM: 02/08/2022 COMPARISON: None HISTORY: Low back pain into rt hip and lower extremity Multiplanar multi echo imaging of the pelvis and right hip with no contrast. The pelvic ring is intact. Proximal femurs and hip joints are intact. There is normal signal pattern in the proximal femurs. No evidence of avascular necrosis. No evidence of hip dysplasia. Acetabula ap pear intact. No evidence of hip joint effusion. No free fluid in the pelvis. On the T2 images there is abnormal increased signal in the posterior spinal muscles of the sacrum on the right side of midline. This is consistent with some diffuse edema. There is some irregular fluid collection anteriorly along the muscle. Muscle involvement is named multifidus and iliocostalis. The small areas of fluid could be old hemorrhage.. There appears to be laminectomy on the right side of L 5 on the MR scan today. This increased signal is consistent with postsurgical changes at the surgery site.. IMPRESSION: The right hip joint appears fairly normal. There is increased signal in the right side paraspinal muscles of the sacrum as above. There is trian gular shaped and measures 4 cm and could relate to some post surgery changes. No fracture seen. Corre lation with the surgical history is needed.
--- NOTE | 2022-02-10 00:06 | MR ---
EXAMINATION TYPE: MR lumbar spine wo con DATE OF EXAM: 02/08/2022 COMPARISON: Prior MRI lumbar spine October 26, 2021 HISTORY: Low back pain into rt hip and lower extremity TECHNIQUE: Multiplanar, multisequence imaging of the lumbar spine is performed without IV contrast. FINDINGS: Slight scoliotic curvature near sacral junction is redemonstrated. Sagittal images of the l umbar spine show vertebral body heights and alignment to appear stable and somewhat straightened. Mul tilevel disc desiccation is redemonstrated. There is stable mild disc space narrowing L4-L5 level. T he conus medullaris remains normal in position and signal ending at T12-L1 disc space level. The bon e marrow signal intensity is within normal limits. Mild multilevel anterior spurring redemonstrated. Axial images show mild to moderate multilevel facet arthropathy throughout the entire lumbar spine. A xial images at L4-L5 level redemonstrated mild broad disc bulge minimally effacing the anterior theca l sac and facet arthropathy effacing the posterior lateral thecal sac with patent bilateral neural fo ramina. No significant change from prior. Suggestion of some possible scar tissue left posterior L4-L 5 level axial image 6 similar to prior Axial images at L5-S1 level show right-sided laminectomy defect new from prior with new posterior sca r tissue. Spinal canal is preserved. Bilateral neural foramina are patent. IMPRESSION: New surgical change right L5 level. Stable alignment. Stable mild to moderate multilevel degenerative changes throughout the lumbar spine.
== END | disposition home or self-care (01) ==
LOC: RADMRIMAIN 07:49
PROVIDERS: ATTEND Neurological Surgery
DX: M76.891 Other specified enthesopathies of right lower limb, excluding foot (principal); M54.16 Radiculopathy, lumbar region; I10 Essential (primary) hypertension
CPT/HCPCS: 72148

== ENCOUNTER 2022-02-10 11:02 | Emergency (ER) | payer MEDICARE, OTHER ==
[2022-02-10 15:24] LABS: Basophils % (A) 1 %; Eosinophils # (A) 0.2 k/uL (0-0.7); Eosinophils % (A) 4 %; HCT 40.1 % (34.0-46.0); HGB 12.8 gm/dL (11.4-16.0); Lymphocytes # (A) 1.2 k/uL (1.0-4.8); Lymphocytes % (A) 26 %; MCH 30.4 pg (25.0-35.0); MCV 95.2 fL (80.0-100.0); Mean Platelet Volume 8.4; Monocytes # (A) 0.2 k/uL (0-1.0); Monocytes % (A) 5 %; Neutrophils # (A) 2.9 k/uL (1.3-7.7); Neutrophils % (A) 62 %; Platelet Count 178 k/uL (150-450); RBC 4.21 m/uL (3.80-5.40); RDW 13.6 % (11.5-15.5); WBC 4.7 k/uL (3.8-10.6)
[2022-02-10 15:36] LABS: ALT 76 U/L (4-34); AST 78 U/L (14-36); African American GFR (CKD) >90 (>60 ml/min/1.73 sqM); Albumin 3.9 g/dL (3.5-5.0); Alkaline Phosphatase 82 U/L (38-126); Anion Gap 12 mmol/L; Blood Urea Nitrogen 7 mg/dL (7-17); Calcium 9.1 mg/dL (8.4-10.2); Carbon Dioxide 25 mmol/L (22-30); Chloride 103 mmol/L (98-107); Glucose 141 mg/dL (74-99); Lipase 35 U/L (23-300); Non-African American GFR(CKD) >90 (>60 ml/min/1.73 sqM); Potassium 3.8 mmol/L (3.5-5.1); Sodium 140 mmol/L (137-145); Total Bilirubin 0.6 mg/dL (0.2-1.3); Total Protein 6.9 g/dL (6.3-8.2)
[2022-02-10] MEDS ORDERED: MAG HYDROX/AL HYDROX/SIMETH 30 ML, HYOSCYAMINE ELIXIR 10 ML, LIDOCAINE VISCOUS 2% 10 ML PO STA ×3 (15:49)
[2022-02-10] MEDS ORDERED: MORPHINE SULFATE 4 MG/ML SYRINGE IV STA (15:58)
[2022-02-10 16:22] VITALS: RESP 18
--- NOTE | 2022-02-10 16:32 | ED ---
General Adult HPI - General Chief complaint: Abdominal Pain Stated complaint: nausea, headache, ankle pain Time Seen by Provider: 02/10/22 14:54 Source: patient Mode of arrival: ambulatory Limitations: no limitations - History of Present Illness Initial comments: Dictation was produced using [employer] dictation software. please excuse any grammatical, word or spelling errors. Chief Complaint: 51-year-old female past radical history of asthma and diabetes presents emergency department for epigastric abdominal pain, nausea History of Present Illness: Patient is 51-year-old female presents emergency Department with chief complaint of 2-3 days of abdominal pain, nausea. Patient states that her symptoms are constant to the epigastric area. Nonradiating. Patient states that she is having associated nausea with nonbilious nonbloody emesis. Patient denies any associated diaphoresis. Denies any history of cardiac disease. Patient has history of chronic right lower extremity pain that she is requesting pain medications for. She was seen for similar symptoms 5 days ago. The ROS documented in this emergency department record has been reviewed and confirmed by me. Those systems with pertinent positive or negative responses have been documented in the HPI. All other systems are other negative and/or noncontributory. PHYSICAL EXAM: General Impression: Alert and oriented x3, not in acute distress HEENT: Normocephalic atraumatic, extra-ocular movements intact, pupils equal and reactive to light bilaterally, mucous membranes moist. Cardiovascular: Heart regular rate and rhythm Chest: Able to complete full sentences, no retractions, no tachypnea Abdomen: abdomen soft, non-tender, non-distended, no organomegaly Musculoskeletal: Pulses present and equal in all extremities, no peripheral edema Motor: no focal deficits noted Neurological: CN II-XII grossly intact, no focal motor or sensory deficits noted Skin: Intact with no visualized rashes Psych: Normal affect and mood ED course: 51-year-old female presents to the emergency department for epigastric abdominal pain. Patient denies any history of cardiac disease. She was seen here 5 days ago for same complaint. She is well-appearing at the bedside. Signs upon arrival are within acceptable limits. Laboratory evaluation obtained. CBC unremarkable. Metabolic panel is negative. Troponin is negative. Urinalysis is negative. Patient given IV analgesics for her chronic leg pain. Patient reports complete resolution of her epigastric symptoms after GI cocktail. Physical presentation suspicious for gastritis versus peptic ulcer. advised follow-up with primary care doctor. EKG interpretation: Ventricular rate 76, sinus rhythm,. Interval 132, care is 92, QTC 398. No LA prolongation, no QTC prolongation, no ST or T-wave changes noted. EKG compared to 02/05/2022 showing no changes. Overall, this EKG is unremarkable - Related Data Home Medications Medication Instructions Recorded Confirmed metFORMIN HCL [Glucophage XR] 750 mg PO BID 11/10/21 02/10/22 oxyCODONE HCL [oxyCODONE HCL (IR)] 30 mg PO TID PRN 02/02/22 02/10/22 Empagliflozin [Jardiance] 25 mg PO DAILY 02/05/22 02/10/22 Previous Rx's Medication Instructions Recorded Cephalexin [Keflex] 500 mg PO Q12HR 7 Days #14 cap 02/05/22 Ondansetron Odt [Zofran Odt] 4 mg PO Q8HR PRN #10 tab 02/05/22 Pantoprazole [Protonix] 40 mg PO DAILY 24 Days #24 tab 02/10/22 Allergies Allergy/AdvReac Type Severity Reaction Status Date / Time No Known Allergies Allergy Verified 02/10/22 15:50 Review of Systems ROS Statement: Those systems with pertinent positive or pertinent negative responses have been documented in the HPI. ROS Other: All systems not noted in ROS Statement are negative. Past Medical History Past Medical History: Asthma, Diabetes Mellitus, Eye Disorder, GERD/Reflux, Hypertension Additional Past Medical History / Comment(s): Chronic low back pain with past L sided sciatica much improved since L4 back surgery years ago, migraines, NIDDM type II, L eye retinal detachment/blindness, enlarged liver, occasional abdominal pain, gastritis, cellulitis L arm after cyst removal. History of Any Multi-Drug Resistant Organisms: None Reported Past Surgical History: Back Surgery, Breast Surgery, Cholecystectomy, Tubal Ligation, Uterine Ablation Additional Past Surgical History / Comment(s): L4 back surgery, D&C, L breast biopsy x2, EGD, colonoscopy, cyst removed from L arm. Past Anesthesia/Blood Transfusion Reactions: Motion Sickness Additional Past Anesthesia/Blood Transfusion Reaction / Comment(s): DONATES PLASMA Past Psychological History: No Psychological Hx Reported Smoking Status: Never smoker Past Alcohol Use History: None Reported Past Drug Use History: None Reported - Past Family History Mother Family Medical History: Asthma Additional Family Medical History / Comment(s): Mother from an asthmatic attack at the age of 46yrs. Father Family Medical History: Liver Disease Additional Family Medical History / Comment(s): Father of liver cirrhosis, he had ETOH abuse. General Exam Limitations: no limitations Course Vital Signs 02/10/22 02/10/22 11:04 16:00 Temperature 98.7 F Pulse Rate 98 70 Respiratory 20 18 Rate Blood Pressure 150/94 154/86 O2 Sat by Pulse 97 99 Oximetry Medical Decision Making - Lab Data Result diagrams: 02/10/22 15:15 02/10/22 15:15 Lab Results 02/10/22 02/10/22 02/10/22 Range/Units 15:15 15:15 15:15 WBC 4.7 (3.8-10.6) k/uL RBC 4.21 (3.80-5.40) m/uL Hgb 12.8 (11.4-16.0) gm/dL Hct 40.1 (34.0-46.0) % MCV 95.2 (80.0-100.0) fL MCH 30.4 (25.0-35.0) pg MCHC 32.0 (31.0-37.0) g/dL RDW 13.6 (11.5-15.5) % Plt Count 178 (150-450) k/uL MPV 8.4 Neutrophils % 62 % Lymphocytes % 26 % Monocytes % 5 % Eosinophils % 4 % Basophils % 1 % Neutrophils # 2.9 (1.3-7.7) k/uL Lymphocytes # 1.2 (1.0-4.8) k/uL Monocytes # 0.2 (0-1.0) k/uL Eosinophils # 0.2 (0-0.7) k/uL Basophils # 0.0 (0-0.2) k/uL Sodium 140 (137-145) mmol/L Potassium 3.8 (3.5-5.1) mmol/L Chloride 103 (98-107) mmol/L Carbon Dioxide 25 (22-30) mmol/L Anion Gap 12 mmol/L BUN 7 (7-17) mg/dL Creatinine 0.64 (0.52-1.04) mg/dL Est GFR (CKD-EPI)AfAm >90 (>60 ml/min/1.73 sqM) Est GFR (CKD-EPI)NonAf >90 (>60 ml/min/1.73 sqM) Glucose 141 H (74-99) mg/dL POC Glucose (mg/dL) (70-110) mg/dL POC Glu Polisher Numeral ID Plasma Lactic Acid Emile 1.0 (0.7-2.0) mmol/L Calcium 9.1 (8.4-10.2) mg/dL Total Bilirubin 0.6 (0.2-1.3) mg/dL AST 78 H (14-36) U/L ALT 76 H (4-34) U/L Alkaline Phosphatase 82 (38-126) U/L Troponin I (0.000-0.034) ng/mL Total Protein 6.9 (6.3-8.2) g/dL Albumin 3.9 (3.5-5.0) g/dL Lipase 35 (23-300) U/L Urine Color Urine Appearance (Clear) Urine pH (5.0-8.0) Ur Specific [place] (1.001-1.035) Urine Protein (Negative) Urine Glucose (UA) (Negative) Urine Ketones (Negative) Urine Blood (Negative) Urine Nitrite (Negative) Urine Bilirubin (Negative) Urine Urobilinogen (<2.0) mg/dL Ur Leukocyte Esterase (Negative) Urine RBC (0-5) /hpf Urine WBC (0-5) /hpf Ur Squamous Epith Cells (0-4) /hpf Urine Bacteria (None) /hpf Hyaline Casts (0-2) /lpf Urine Mucus (None) /hpf 02/10/22 02/10/22 02/10/22 Range/Units 16:34 16:38 16:50 WBC (3.8-10.6) k/uL RBC (3.80-5.40) m/uL Hgb (11.4-16.0) gm/dL Hct (34.0-46.0) % MCV (80.0-100.0) fL MCH (25.0-35.0) pg MCHC (31.0-37.0) g/dL RDW (11.5-15.5) % Plt Count (150-450) k/uL MPV Neutrophils % % Lymphocytes % % Monocytes % % Eosinophils % % Basophils % % Neutrophils # (1.3-7.7) k/uL Lymphocytes # (1.0-4.8) k/uL Monocytes # (0-1.0) k/uL Eosinophils # (0-0.7) k/uL Basophils # (0-0.2) k/uL Sodium (137-145) mmol/L Potassium (3.5-5.1) mmol/L Chloride (98-107) mmol/L Carbon Dioxide (22-30) mmol/L Anion Gap mmol/L BUN (7-17) mg/dL Creatinine (0.52-1.04) mg/dL Est GFR (CKD-EPI)AfAm (>60 ml/min/1.73 sqM) Est GFR (CKD-EPI)NonAf (>60 ml/min/1.73 sqM) Glucose (74-99) mg/dL POC Glucose (mg/dL) 125 H (70-110) mg/dL POC Glu Polisher Numeral ID Jo Ann Ellison Plasma Lactic Acid Emile (0.7-2.0) mmol/L Calcium (8.4-10.2) mg/dL Total Bilirubin (0.2-1.3) mg/dL AST (14-36) U/L ALT (4-34) U/L Alkaline Phosphatase (38-126) U/L Troponin I <0.012 (0.000-0.034) ng/mL Total Protein (6.3-8.2) g/dL Albumin (3.5-5.0) g/dL Lipase (23-300) U/L Urine Color Yellow Urine Appearance Cloudy H (Clear) Urine pH 5.5 (5.0-8.0) Ur Specific [place] 1.031 (1.001-1.035) Urine Protein 1+ H (Negative) Urine Glucose (UA) 4+ H (Negative) Urine Ketones 2+ H (Negative) Urine Blood Negative (Negative) Urine Nitrite Negative (Negative) Urine Bilirubin Negative (Negative) Urine Urobilinogen 3.0 (<2.0) mg/dL Ur Leukocyte Esterase Negative (Negative) Urine RBC 4 (0-5) /hpf Urine WBC 5 (0-5) /hpf Ur Squamous Epith Cells 16 H (0-4) /hpf Urine Bacteria Occasional H (None) /hpf Hyaline Casts 13 H (0-2) /lpf Urine Mucus Many H (None) /hpf Disposition Clinical Impression: Gastritis Disposition: HOME SELF-CARE Condition: Fair Instructions (If sedation given, give patient instructions): Gastritis (ED) Prescriptions: Pantoprazole [Protonix] 40 mg PO DAILY 24 Days #24 tab Is patient prescribed a controlled substance at d/c from ED?: No Referrals: Markell Becker III, MD [Primary Care Provider] - 1-2 days Time of Disposition: 17:35
[2022-02-10 16:36] LABS: Glucose,Whole Blood 125 mg/dL (70-110)
[2022-02-10 17:04] LABS: Appearance,Urine Cloudy (Clear); Bacteria,Urine Occasional /hpf; Bilirubin,Urine Negative (Negative); Blood,Urine Negative (Negative); Color,Urine Yellow; Glucose,Urine (UA) 4+ (Negative); Hyaline Casts,Urine 13 /lpf (0-2); Leukocyte Esterase,Urine Negative (Negative); Mucus,Urine Many /hpf; Nitrite,Urine Negative (Negative); PH, Urine 5.5 (5.0-8.0); Protein,Urine 1+ (Negative); RBC,Urine 4 /hpf (0-5); Specific Gravity,Urine 1.031 (1.001-1.035); Squamous Epithelial Cell,Urine 16 /hpf (0-4); WBC,Urine 5 /hpf (0-5)
[2022-02-10 17:06] LABS: Ketones,Urine 2+ (Negative)
[2022-02-10] MEDS ORDERED: HYDROmorphone 0.5 MG/0.5 ML SYRINGE IVP STA (17:35)
[2022-02-10 18:32] VITALS: BP 130/78; PULSE 75; TEMP 98.5
== END 2022-02-10 18:15 | disposition home or self-care (01) ==
LOC: EC 11:02
DX: K29.70 Gastritis, unspecified, without bleeding (principal); J45.909 Unspecified asthma, uncomplicated; E11.9 Type 2 diabetes mellitus without complications; K21.9 Gastro-esophageal reflux disease without esophagitis; I10 Essential (primary) hypertension; Z79.899 Other long term (current) drug therapy
CPT/HCPCS: 36415; 93005; 80053; 83605; 83690; 84484; 85025; 81001; 99284; 96374; 96375; J2270; J1170

== ENCOUNTER → 2022-03-12 | Outpatient (CLI) | payer MEDICARE, OTHER ==
[2022-03-12 18:24] LABS: Basophils # (A) 0.06 X 10*3/uL (0.00-0.10); Eosinophils # (A) 0.29 X 10*3/uL (0.04-0.35); Eosinophils % (A) 4.8 %; HCT 41.8 % (37.2-46.3); HGB 13.2 g/dL (12.0-15.0); Immature Grans, Automated 0.2 %; Lymphocytes # (A) 1.97 X 10*3/uL (0.90-5.00); Lymphocytes % (A) 32.5 %; MCH 30.2 pg (27.0-32.0); MCHC 31.6 g/dL (32.0-37.0); MCV 95.7 fL (80.0-97.0); Mean Platelet Volume 11.8 fL (9.5-12.2); Monocytes # (A) 0.45 X 10*3/uL (0.20-1.00); Monocytes % (A) 7.4 %; NRBC Per 100 WBC 0 /100 WBCS (0.0-0.0); Neutrophils # (A) 3.29 X 10*3/uL (1.80-7.70); Neutrophils % (A) 54.1 %; Platelet Count 269 X 10*3/uL (140-440); RBC 4.37 X 10*6/uL (4.10-5.20); RDW 12.7 % (11.5-14.5); WBC 6.07 X 10*3/uL (4.50-10.00)
[2022-03-12 18:37] LABS: African American GFR (CKD) 81.4 (60.0-200.0); Albumin 4.1 g/dL (3.8-4.9); Albumin/Globulin Ratio 1.46 (1.60-3.17); Anion Gap 12.5 mmol/L (10.00-18.00); BUN/Creat Ratio 10.55 Ratio (12.00-20.00); Blood Urea Nitrogen 9.9 mg/dL (9.0-27.0); Calcium 9.9 mg/dL (8.7-10.3); Globulin 2.8 g/dL (1.6-3.3); Non-African American GFR(CKD) 70.2 (60.0-200.0); Potassium 4.6 mmol/L (3.5-5.5); Total Bilirubin 0.6 mg/dL (0.30-1.20)
== END | disposition home or self-care (01) ==
LOC: LABWHC1 09:44
PROVIDERS: ATTEND Family Medicine
DX: I10 Essential (primary) hypertension (principal); E11.65 Type 2 diabetes mellitus with hyperglycemia; M79.604 Pain in right leg; R80.9 Proteinuria, unspecified; R74.01 Elevation of levels of liver transaminase levels
CPT/HCPCS: 36415; 80053; 82550; 85025

== ENCOUNTER 2022-04-03 12:06 | Emergency (ER) | payer MEDICARE, OTHER ==
[2022-04-03] MEDS ORDERED: SODIUM CHLORIDE 0.9% 1,000 ML IV STA (12:53)
--- NOTE | 2022-04-03 12:56 | ED ---
General Adult HPI - General Chief complaint: Nausea/Vomiting/Diarrhea Stated complaint: fever Time Seen by Provider: 04/03/22 12:15 Source: patient Mode of arrival: ambulatory Limitations: no limitations - History of Present Illness Initial comments: 51-year-old female with past history of asthma, diabetes presents emergency Department with diarrhea and chills. Also reports a weight loss. States that she's had 50 pound weight loss in the past 3 months and this has been nonintentional. Over the past 2 days the patient has had chills without record ed fevers. Also has had 3 episodes of loose stool per day denies black or bloody stools. No recent antibiotic use. She denies chest pain or shortness of breath no abdominal pain. No changes in her urination. Denies any sick contacts. She did take a covid test which was positive. Called her primary care doctor and was placed on Paxlovid. Has been taking the medications as directed however states she continues to have no improvement in her symptoms. No other alleviating, precipitating or modifying factors - Related Data Home Medications Medication Instructions Recorded Confirmed metFORMIN HCL [Glucophage XR] 750 mg PO BID 11/10/21 02/10/22 oxyCODONE HCL [oxyCODONE HCL (IR)] 30 mg PO TID PRN 02/02/22 02/10/22 Empagliflozin [Jardiance] 25 mg PO DAILY 02/05/22 02/10/22 Previous Rx's Medication Instructions Recorded Cephalexin [Keflex] 500 mg PO Q12HR 7 Days #14 cap 02/05/22 Ondansetron Odt [Zofran Odt] 4 mg PO Q8HR PRN #10 tab 02/05/22 Pantoprazole [Protonix] 40 mg PO DAILY 24 Days #24 tab 02/10/22 Cephalexin [Keflex] 500 mg PO BID #14 cap 04/03/22 Allergies Allergy/AdvReac Type Severity Reaction Status Date / Time No Known Allergies Allergy Verified 04/03/22 12:11 Review of Systems ROS Statement: Those systems with pertinent positive or pertinent negative responses have been documented in the HPI. ROS Other: All systems not noted in ROS Statement are negative. Past Medical History Past Medical History: Asthma, Diabetes Mellitus, Eye Disorder, GERD/Reflux, Hypertension Additional Past Medical History / Comment(s): Chronic low back pain with past L sided sciatica much improved since L4 back surgery years ago, migraines, NIDDM type II, L eye retinal detachment/blindness, enlarged liver, occasional abdominal pain, gastritis, cellulitis L arm after cyst removal. History of Any Multi-Drug Resistant Organisms: None Reported Past Surgical History: Back Surgery, Breast Surgery, Cholecystectomy, Tubal Ligation, Uterine Ablation Additional Past Surgical History / Comment(s): L4 back surgery, D&C, L breast biopsy x2, EGD, colonoscopy, cyst removed from L arm. Past Anesthesia/Blood Transfusion Reactions: Motion Sickness Additional Past Anesthesia/Blood Transfusion Reaction / Comment(s): DONATES PLASMA Past Psychological History: No Psychological Hx Reported Smoking Status: Never smoker Past Alcohol Use History: None Reported Past Drug Use History: None Reported - Past Family History Mother Family Medical History: Asthma Additional Family Medical History / Comment(s): Mother from an asthmatic attack at the age of 46yrs. Father Family Medical History: Liver Disease Additional Family Medical History / Comment(s): Father of liver cirrhosis, he had ETOH abuse. General Exam Limitations: no limitations General appearance: alert, in no apparent distress Head exam: Present: atraumatic, normocephalic, normal inspection Eye exam: Present: normal appearance, PERRL, EOMI. Absent: scleral icterus, conjunctival injection, periorbital swelling ENT exam: Present: normal exam, mucous membranes moist Neck exam: Present: normal inspection. Absent: tenderness, meningismus, lymphad enopathy Respiratory exam: Present: normal lung sounds bilaterally. Absent: respiratory distress, wheezes, rales, rhonchi, stridor Cardiovascular Exam: Present: regular rate, normal rhythm, normal heart sounds. Absent: systolic murmur, diastolic murmur, rubs, gallop, clicks GI/Abdominal exam: Present: soft, normal bowel sounds. Absent: distended, tenderness, guarding, rebound, rigid Extremities exam: Present: normal inspection, full ROM, normal capillary refill. Absent: tenderness, pedal edema, joint swelling, calf tenderness Back exam: Present: normal inspection Neurological exam: Present: alert, oriented X3, CN II-XII intact Psychiatric exam: Present: normal affect, normal mood Skin exam: Present: warm, dry, intact, normal color. Absent: rash Course Vital Signs 04/03/22 04/03/22 12:08 16:16 Temperature 98.5 F 98.4 F Pulse Rate 102 H 84 Respiratory 20 16 Rate Blood Pressure 166/102 121/91 O2 Sat by Pulse 100 100 Oximetry Medical Decision Making - Medical Decision Making Upon arrival the patient was placed into room 21. Thorough history and physical exam was performed. IV access was established and laboratory studies are conducted. Patient was given a liter bolus of normal saline. Laboratory studies are reviewed. Urinalysis is positive for nitrites and moderate bacteria. Covid is negative. Chest x-ray demonstrates no acute process. Abdominal x-rays performed because of the reported weight loss with diarrhea. CT demonstrates no acute findings. Nonobstructing right renal calculus. Liver cyst. Patient given a dose of Rocephin. Altered discussed with the patient. Patient will be treated with antibiotics for her urinary tract infection. Instructed to follow up with primary care doctor. Should have EGD and colonoscopy performed due to unintentional weight loss. Return for any new or worsening symptoms. Patient was agreeable and discharged home in stable condition - Lab Data Result diagrams: 04/03/22 13:25 04/03/22 13:25 Lab Results 04/03/22 04/03/22 04/03/22 Range/Units 13:25 13:25 13:25 WBC 8.4 (3.8-10.6) k/uL RBC 4.73 (3.80-5.40) m/uL Hgb 14.0 (11.4-16.0) gm/dL Hct 43.1 (34.0-46.0) % MCV 91.0 (80.0-100.0) fL MCH 29.5 (25.0-35.0) pg MCHC 32.4 (31.0-37.0) g/dL RDW 12.4 (11.5-15.5) % Plt Count 293 (150-450) k/uL MPV 8.7 Neutrophils % 66 % Lymphocytes % 26 % Monocytes % 4 % Eosinophils % 1 % Basophils % 1 % Neutrophils # 5.6 (1.3-7.7) k/uL Lymphocytes # 2.2 (1.0-4.8) k/uL Monocytes # 0.4 (0-1.0) k/uL Eosinophils # 0.1 (0-0.7) k/uL Basophils # 0.0 (0-0.2) k/uL Sodium 139 (137-145) mmol/L Potassium 4.0 (3.5-5.1) mmol/L Chloride 101 (98-107) mmol/L Carbon Dioxide 21 L (22-30) mmol/L Anion Gap 17 mmol/L BUN 9 (7-17) mg/dL Creatinine 0.67 (0.52-1.04) mg/dL Est GFR (CKD-EPI)AfAm >90 (>60 ml/min/1.73 sqM) Est GFR (CKD-EPI)NonAf >90 (>60 ml/min/1.73 sqM) Glucose 122 H (74-99) mg/dL Calcium 10.3 H (8.4-10.2) mg/dL Total Bilirubin 0.4 (0.2-1.3) mg/dL AST 48 H (14-36) U/L ALT 41 H (4-34) U/L Alkaline Phosphatase 114 (38-126) U/L Total Protein 7.9 (6.3-8.2) g/dL Albumin 4.6 (3.5-5.0) g/dL Lipase 127 (23-300) U/L Urine Color Yellow Urine Appearance Cloudy H (Clear) Urine pH 5.5 (5.0-8.0) Ur Specific [place] 1.027 (1.001-1.035) Urine Protein Trace H (Negative) Urine Glucose (UA) 4+ H (Negative) Urine Ketones Trace H (Negative) Urine Blood Negative (Negative) Urine Nitrite Positive H (Negative) Urine Bilirubin Negative (Negative) Urine Urobilinogen <2.0 (<2.0) mg/dL Ur Leukocyte Esterase Trace H (Negative) Urine RBC 1 (0-5) /hpf Urine WBC 14 H (0-5) /hpf Ur Squamous Epith Cells 9 H (0-4) /hpf Amorphous Sediment Rare H (None) /hpf Urine Bacteria Moderate H (None) /hpf Urine Mucus Many H (None) /hpf Coronavirus (PCR) (Not Detectd) 04/03/22 Range/Units 13:25 WBC (3.8-10.6) k/uL RBC (3.80-5.40) m/uL Hgb (11.4-16.0) gm/dL Hct (34.0-46.0) % MCV (80.0-100.0) fL MCH (25.0-35.0) pg MCHC (31.0-37.0) g/dL RDW (11.5-15.5) % Plt Count (150-450) k/uL MPV Neutrophils % % Lymphocytes % % Monocytes % % Eosinophils % % Basophils % % Neutrophils # (1.3-7.7) k/uL Lymphocytes # (1.0-4.8) k/uL Monocytes # (0-1.0) k/uL Eosinophils # (0-0.7) k/uL Basophils # (0-0.2) k/uL Sodium (137-145) mmol/L Potassium (3.5-5.1) mmol/L Chloride (98-107) mmol/L Carbon Dioxide (22-30) mmol/L Anion Gap mmol/L BUN (7-17) mg/dL Creatinine (0.52-1.04) mg/dL Est GFR (CKD-EPI)AfAm (>60 ml/min/1.73 sqM) Est GFR (CKD-EPI)NonAf (>60 ml/min/1.73 sqM) Glucose (74-99) mg/dL Calcium (8.4-10.2) mg/dL Total Bilirubin (0.2-1.3) mg/dL AST (14-36) U/L ALT (4-34) U/L Alkaline Phosphatase (38-126) U/L Total Protein (6.3-8.2) g/dL Albumin (3.5-5.0) g/dL Lipase (23-300) U/L Urine Color Urine Appearance (Clear) Urine pH (5.0-8.0) Ur Specific [place] (1.001-1.035) Urine Protein (Negative) Urine Glucose (UA) (Negative) Urine Ketones (Negative) Urine Blood (Negative) Urine Nitrite (Negative) Urine Bilirubin (Negative) Urine Urobilinogen (<2.0) mg/dL Ur Leukocyte Esterase (Negative) Urine RBC (0-5) /hpf Urine WBC (0-5) /hpf Ur Squamous Epith Cells (0-4) /hpf Amorphous Sediment (None) /hpf Urine Bacteria (None) /hpf Urine Mucus (None) /hpf Coronavirus (PCR) Not Detected (Not Detectd) Disposition Clinical Impression: Pyrexia, UTI (urinary tract infection) Disposition: HOME SELF-CARE Condition: Stable Instructions (If sedation given, give patient instructions): Urinary Tract Infection in Women (ED) Additional Instructions: Please follow-up with your primary care doctor in 2-4 days. return for any new or worsening symptoms Prescriptions: Cephalexin [Keflex] 500 mg PO BID #14 cap Is patient prescribed a controlled substance at d/c from ED?: No Referrals: Markell Becker III, MD [Primary Care Provider] - 1-2 days Time of Disposition: 15:49
[2022-04-03 14:08] LABS: Basophils % (A) 1 %; Eosinophils # (A) 0.1 k/uL (0-0.7); Eosinophils % (A) 1 %; HCT 43.1 % (34.0-46.0); Lymphocytes # (A) 2.2 k/uL (1.0-4.8); Lymphocytes % (A) 26 %; MCH 29.5 pg (25.0-35.0); MCHC 32.4 g/dL (31.0-37.0); Mean Platelet Volume 8.7; Monocytes # (A) 0.4 k/uL (0-1.0); Monocytes % (A) 4 %; Neutrophils # (A) 5.6 k/uL (1.3-7.7); Neutrophils % (A) 66 %; Platelet Count 293 k/uL (150-450); RBC 4.73 m/uL (3.80-5.40); RDW 12.4 % (11.5-15.5); WBC 8.4 k/uL (3.8-10.6)
[2022-04-03 14:23] LABS: ALT 41 U/L (4-34); AST 48 U/L (14-36); African American GFR (CKD) >90 (>60 ml/min/1.73 sqM); Albumin 4.6 g/dL (3.5-5.0); Alkaline Phosphatase 114 U/L (38-126); Anion Gap 17 mmol/L; Blood Urea Nitrogen 9 mg/dL (7-17); Calcium 10.3 mg/dL (8.4-10.2); Carbon Dioxide 21 mmol/L (22-30); Chloride 101 mmol/L (98-107); Glucose 122 mg/dL (74-99); Lipase 127 U/L (23-300); Non-African American GFR(CKD) >90 (>60 ml/min/1.73 sqM); Sodium 139 mmol/L (137-145); Total Bilirubin 0.4 mg/dL (0.2-1.3); Total Protein 7.9 g/dL (6.3-8.2)
[2022-04-03 14:28] LABS: Amorphous Sediment,Urine Rare /hpf; Appearance,Urine Cloudy (Clear); Bacteria,Urine Moderate /hpf; Bilirubin,Urine Negative (Negative); Blood,Urine Negative (Negative); Color,Urine Yellow; Glucose,Urine (UA) 4+ (Negative); Ketones,Urine Trace (Negative); Leukocyte Esterase,Urine Trace (Negative); Mucus,Urine Many /hpf; Nitrite,Urine Positive (Negative); PH, Urine 5.5 (5.0-8.0); Protein,Urine Trace (Negative); RBC,Urine 1 /hpf (0-5); Specific Gravity,Urine 1.027 (1.001-1.035); Squamous Epithelial Cell,Urine 9 /hpf (0-4); Urobilinogen,Urine <2.0 mg/dL (<2.0); WBC,Urine 14 /hpf (0-5)
[2022-04-03] MEDS ORDERED: cefTRIAXone IN SWFI 1,000 MG/10 ML SYRINGE IVP STA (15:03)
--- NOTE | 2022-04-03 15:12 | XR ---
EXAMINATION TYPE: XR chest 2V DATE OF EXAM: 04/03/2022 COMPARISON: 02/05/2022 HISTORY: Fever TECHNIQUE: FINDINGS: Heart and mediastinum are normal. Lungs are clear. Diaphragm is normal. Bony thorax appears normal. IMPRESSION: Normal chest. No change.
--- NOTE | 2022-04-03 15:23 | CT ---
EXAMINATION TYPE: CT abdomen pelvis w con DATE OF EXAM: 04/03/2022 COMPARISON: 08/27/2011 HISTORY: FEVER, LOSS OF APPETITE AND WEIGHT LOSS CT DLP: 1163.7 mGycm Automated exposure control for dose reduction was used. CONTRAST: Performed with IV Contrast, patient injected with 100 mL of Isovue 300. The lung bases are clear. No pleural effusion. Heart size is normal. No pericardial effusion. Liver has normal size. There are clips from cholecystectomy. There is 2 cm cyst in the anterior right lobe of the liver. Spleen is intact. No pancreatic mass. The bile ducts are not dilated. There is no adrenal mass. There is 4 mm calculus posterior right kidney. No hydronephrosis. There is satisfactory contrast opacification of the kidneys. Delayed images show normal renal excretion. There is no retroperitoneal adenopathy. Appendix is lateral and appears normal. The bladder distends sherlyn hly. No inguinal hernia. Uterus is anteverted. No free fluid in the pelvis. The lumbar vertebrae have normal alignment. No compression fracture. Sacroiliac joints are intact. Th e hip joints are intact. Bony pelvis is intact. There is no mesenteric edema. No ascites or free air. No sign of a bowel obstruction. IMPRESSION: Nonobstructing right renal calculus. Normal appendix. There is cyst in the anterior liver that is inc reased compared to the old exam. Renal calculus appears not significantly different than old exam. No rmal appendix.
[2022-04-03 16:17] VITALS: BP 121/91; PULSE 84; RESP 16; TEMP 98.4
== END 2022-04-03 16:22 | disposition home or self-care (01) ==
LOC: EC 12:06
DX: R50.9 Fever, unspecified (principal); N39.0 Urinary tract infection, site not specified; J45.909 Unspecified asthma, uncomplicated; E11.9 Type 2 diabetes mellitus without complications; K21.9 Gastro-esophageal reflux disease without esophagitis; I10 Essential (primary) hypertension; Z79.84 Long term (current) use of oral hypoglycemic drugs; Z79.899 Other long term (current) drug therapy
CPT/HCPCS: 36415; 80053; 83690; 85025; 81001; 87086; 87077; 87186; 87635; 71046; 74177; 99284; 96374; 96361 ×2; J0696; Q9967

== ENCOUNTER → 2022-06-16 | Outpatient (CLI) | payer MEDICARE, OTHER ==
--- NOTE | 2022-06-16 18:02 | US ---
EXAMINATION TYPE: US thyroid st tissue head/neck DATE OF EXAM: 06/16/2022 COMPARISON: NONE CLINICAL HISTORY: E04.1 THYROID NODULE. Thyroid nodule GLAND SIZE: Right Lobe: 5.6 x 1.6 x 1.5 cm Overall Parenchyma: homogenous Left Lobe: 4.9 x 1.4 x 1.9 cm Overall Parenchyma: homogeneous Isthmus Thickness: .4 cm NODULES RIGHT: # of nodules measured on right: Subcentimeter. LEFT: # of nodules measured on left: 0 isthmus: 0 Bilateral neck scanned, no evidence of lymphadenopathy. IMPRESSION: 1. No suspicious thyroid nodules.
== END | disposition home or self-care (01) ==
LOC: RADUSWWP 10:37
PROVIDERS: ATTEND Family Medicine
DX: E04.1 Nontoxic single thyroid nodule (principal)
CPT/HCPCS: 76536

== ENCOUNTER → 2022-11-23 | Outpatient (CLI) | payer MEDICARE, OTHER ==
[2022-11-23 10:09] LABS: African American GFR (CKD) >90 (>60 ml/min/1.73 sqM); Blood Urea Nitrogen 15 mg/dL (7-17); Non-African American GFR(CKD) >90 (>60 ml/min/1.73 sqM)
--- NOTE | 2022-11-23 11:53 | CT ---
EXAMINATION TYPE: CT urogram wo/w con CT DLP: 3766.9 mGycm, Automated exposure control for dose reduction was used. DATE OF EXAM: 11/23/2022 11:16 AM COMPARISON: CT abdomen pelvis most recent from 04/03/2022 CLINICAL INDICATION:Female, 52 years old with history of R31.9, hematuria TECHNIQUE: Urogram with imaging of the abdomen and pelvis. Coronal and sagittal reformats were performed. 2D and 3D reconstructions are performed to assist visualization of the urinary tract on a separate workstat ion. Contrast used:100 mL of Isovue 300 with IV Contrast, Oral contrast used: None. FINDINGS: LOWER CHEST: No significant findings. GENITOURINARY: RIGHT KIDNEY AND URETER: There are at least 2 calculi in the distal right ureter near the ureterovesi cular junction measuring up to 6 mm. No significant dilation of the right-sided renal calyces. There is a extrarenal pelvis on the right. No hydronephrosis or hydroureter. No renal mass or other lesions . No urothelial lesions: no filling defect, dilation, stricture or wall thickening. LEFT KIDNEY AND URETER: No calculi. No hydronephrosis or hydroureter. No renal mass or other lesions. Limited distal ureter secondary to lack of excreted IV contrast with that said urothelial lesions: n o filling defect, dilation, stricture or wall thickening. URINARY BLADDER: Not optimally distended. Limited evaluation secondary to partial filling of the blad judy with excreted IV contrast. No calculi or obvious mass. REPRODUCTIVE: Unremarkable. ABDOMEN LIVER: Hepatic cyst. There is diffuse low-attenuation to the liver.,. GALLBLADDER AND BILE DUCTS: The gallbladder surgically absent. PANCREAS: Unremarkable. SPLEEN: Unremarkable. ADRENAL GLANDS: Unremarkable. STOMACH AND BOWEL: . No evidence of bowel obstruction. Appendix is normal. PERITONEUM: No evidence of pneumoperitoneum, free fluid, or adenopathy. VASCULATURE: No evidence of aortic aneurysm. MUSCULOSKELETAL: No acute osseous abnormalities LYMPH NODES: No gross evidence for lymphadenopathy. SOFT TISSUE/ABDOMINAL WALL: Fat-containing umbilical hernia. IMPRESSION: 1. 2 calcification densities are seen in the distal right ureter at the ureterovesicular junction palmer ggestive of nonobstructive calcifications. No right-sided [place] nephrosis. The calyces are within nor mal limits. There is an extrarenal pelvis on the right. These calcified lesions are new from 2. 2. Limited evaluation of the distal left ureters secondary to lack of excreted IV contrast.
== END | disposition home or self-care (01) ==
LOC: RADCTMAIN 09:19
PROVIDERS: ATTEND Family Medicine
DX: N28.89 Other specified disorders of kidney and ureter (principal); R31.9 Hematuria, unspecified
CPT/HCPCS: 82565; 84520; 74178; 36415; 74400; Q9967

== ENCOUNTER 2022-12-09 10:21 | Emergency (ER) | payer MEDICARE, OTHER ==
[2022-12-09 10:47] VITALS: BP 139/91; PULSE 80; RESP 20; TEMP 98.3
[2022-12-09 12:24] LABS: Appearance,Urine Clear (Clear); Bilirubin,Urine Negative (Negative); Blood,Urine Negative (Negative); Color,Urine Yellow; Glucose,Urine (UA) 1+ (Negative); Ketones,Urine Negative (Negative); Leukocyte Esterase,Urine Negative (Negative); Nitrite,Urine Negative (Negative); PH, Urine 5.5 (5.0-8.0); Protein,Urine Negative (Negative); Specific Gravity,Urine 1.017 (1.001-1.035); Urobilinogen,Urine <2.0 mg/dL (<2.0)
--- NOTE | 2022-12-09 12:39 | ED ---
General Adult HPI - General Chief complaint: Skin/Abscess/Foreign Body Stated complaint: rash Time Seen by Provider: 12/09/22 11:15 Source: patient Mode of arrival: ambulatory Limitations: no limitations - History of Present Illness Initial comments: Patient is a 52-year-old female who presents the emergency department for vaginal rash. Patient reports rash on her right vulva which is painful and itchy for the past 3 weeks. She reports yellow thick malodorous discharge. She denies fever, chills, nausea, vomiting, abdominal pain. Denies history of sexually transmitted infections. Patient has one male partner which is somewhat new. She does admit to unprotected sexual intercourse. She does not know if he is having any symptoms. - Related Data Home Medications Medication Instructions Recorded Confirmed metFORMIN HCL [Glucophage XR] 750 mg PO BID 11/10/21 02/10/22 oxyCODONE HCL [oxyCODONE HCL (IR)] 30 mg PO TID PRN 02/02/22 02/10/22 Empagliflozin [Jardiance] 25 mg PO DAILY 02/05/22 02/10/22 Previous Rx's Medication Instructions Recorded Cephalexin [Keflex] 500 mg PO Q12HR 7 Days #14 cap 02/05/22 Ondansetron Odt [Zofran Odt] 4 mg PO Q8HR PRN #10 tab 02/05/22 Pantoprazole [Protonix] 40 mg PO DAILY 24 Days #24 tab 02/10/22 Cephalexin [Keflex] 500 mg PO BID #14 cap 04/03/22 Acyclovir [Zovirax] 800 mg PO TID #30 tab 12/09/22 Allergies Allergy/AdvReac Type Severity Reaction Status Date / Time No Known Allergies Allergy Verified 12/09/22 10:47 Review of Systems ROS Statement: Those systems with pertinent positive or pertinent negative responses have been documented in the HPI. ROS Other: All systems not noted in ROS Statement are negative. Past Medical History Past Medical History: Asthma, Diabetes Mellitus, Eye Disorder, GERD/Reflux, Hypertension Additional Past Medical History / Comment(s): Chronic low back pain with past L sided sciatica much improved since L4 back surgery years ago, migraines, NIDDM type II, L eye retinal detachment/blindness, enlarged liver, occasional abdominal pain, gastritis, cellulitis L arm after cyst removal. History of Any Multi-Drug Resistant Organisms: None Reported Past Surgical History: Back Surgery, Breast Surgery, Cholecystectomy, Tubal Ligation, Uterine Ablation Additional Past Surgical History / Comment(s): L4 back surgery, D&C, L breast biopsy x2, EGD, colonoscopy, cyst removed from L arm. Past Anesthesia/Blood Transfusion Reactions: Motion Sickness Additional Past Anesthesia/Blood Transfusion Reaction / Comment(s): DONATES PLASMA Past Psychological History: No Psychological Hx Reported Smoking Status: Never smoker Past Alcohol Use History: None Reported Past Drug Use History: None Reported - Past Family History Mother Family Medical History: Asthma Additional Family Medical History / Comment(s): Mother from an asthmatic attack at the age of 46yrs. Father Family Medical History: Liver Disease Additional Family Medical History / Comment(s): Father of liver cirrhosis, he had ETOH abuse. General Exam Limitations: no limitations General appearance: alert, in no apparent distress Head exam: Present: atraumatic, normocephalic, normal inspection Respiratory exam: Present: normal lung sounds bilaterally. Absent: respiratory distress, wheezes, rales, rhonchi, stridor Cardiovascular Exam: Present: regular rate, normal rhythm, normal heart sounds. Absent: systolic murmur, diastolic murmur, rubs, gallop, clicks External exam: Present: lesions (appears to be an open blister of the right labia majora tender to palpation ) Speculum exam: Present: normal speculum exam, vaginal discharge (minimal white discharge no odor ) By manual exam: Present: normal by manual exam. Absent: cervical motion tenderness Neurological exam: Present: alert, oriented X3, CN II-XII intact Psychiatric exam: Present: normal affect, normal mood Skin exam: Present: warm, dry, intact, normal color Course Vital Signs 12/09/22 10:45 Temperature 98.3 F Pulse Rate 80 Respiratory 20 Rate Blood Pressure 139/91 O2 Sat by Pulse 99 Oximetry Medical Decision Making - Medical Decision Making Was pt. sent in by a medical professional or institution (, PA, MANAGER PEDIATRIC, urgent care, hospital, or detention...) When possible be specific @ -No Did you speak to anyone other than the patient for history (EMS, parent, family, police, friend...)? What history was obtained from this source @ -No Did you review nursing and triage notes (agree or disagree)? Why? @ -I reviewed and agree with nursing and triage notes Were old charts reviewed (outside hosp., previous admission, EMS record, old EKG, old radiological studies, urgent care reports/EKG's, detention records)? Report findings @ -No old charts were reviewed Differential Diagnosis (chest pain, altered mental status, abdominal pain women, abdominal pain men, vaginal bleeding, weakness, fever, dyspnea, syncope, headache, dizziness, GI bleed, back pain, seizure, CVA, palpatations, mental health)? @ -herpes, syphilis, gonorrhea, chlamydia, trichomonas. This list is not meant to be all inclusive EKG interpreted by me (3pts min.). @ -As above X-rays interpreted by me (1pt min.). @ -None done CT interpreted by me (1pt min.). @ -None done U/S interpreted by me (1pt. min.). @ -None done What testing was considered but not performed or refused? (CT, X-rays, U/S, labs)? Why? @ -None What meds were considered but not given or refused? Why? @ -None Did you discuss the management of the patient with other professionals (professionals i.e. , PA, MANAGER PEDIATRIC, lab, RT, psych nurse, child welfare social worker, director inbound sales, teacher, ordnance corps officer, case loader operator)? Give summary @ -No Was smoking cessation discussed for >3mins.? @ -No Was critical care preformed (if so, how long)? @ -No Were there social determinants of health that impacted care today? How? (Homelessness, low income, unemployed, alcoholism, drug addiction, transportation, low edu. Level, literacy, decrease access to med. care, custodial, rehab)? @ -No Was there de-escalation of care discussed even if they declined (Discuss DNR or withdrawal of care, Hospice)? DNR status @ -No What co-morbidities impacted this encounter? (DM, HTN, Smoking, COPD, CAD, Cancer, CVA, ARF, Chemo, Hep., AIDS, mental health diagnosis, sleep apnea, morbid obesity)? @ -None Was patient admitted / discharged? Hospital course, mention meds given and route, prescriptions, significant lab abnormalities, going to OR and other pertinent info. @ -Discharge. Physical examination raises suspicion for herpes vs abrasion from scratching. Discussed herpes in detail with patient results are pending patient would like to be treated empirically. Will wait for other testing results prior to treatment. Undiagnosed new problem with uncertain prognosis? @ -No Drug Therapy requiring intensive monitoring for toxicity (Heparin, Nitro, Insulin, Cardizem)? @ -No Were any procedures done? @ -No Diagnosis/symptom? @ -vaginal lesion Acute, or Chronic, or Acute on Chronic? @ -acute Uncomplicated (without systemic symptoms) or Complicated (systemic symptoms)? @ -uncomplicated Side effects of treatment? @ -No Exacerbation, Progression, or Severe Exacerbation? @ -No Poses a threat to life or bodily function? How? (Chest pain, [place], [place], pneumonia, PE, COPD, DKA, ARF, appy, cholecystitis, CVA, Diverticulitis, Homicidal, Suicidal, threat to staff... and all critical care pts) @No Dr. Murcia is my attending - Lab Data Lab Results 12/09/22 12/09/22 Range/Units 12:11 12:11 Urine Color Yellow Urine Appearance Clear (Clear) Urine pH 5.5 (5.0-8.0) Ur Specific [place] 1.017 (1.001-1.035) Urine Protein Negative (Negative) Urine Glucose (UA) 1+ H (Negative) Urine Ketones Negative (Negative) Urine Blood Negative (Negative) Urine Nitrite Negative (Negative) Urine Bilirubin Negative (Negative) Urine Urobilinogen <2.0 (<2.0) mg/dL Ur Leukocyte Esterase Negative (Negative) Trichomonas Ag (Rapid) Negative (Negative) Disposition Clinical Impression: Vaginal lesion Disposition: HOME SELF-CARE Condition: Good Instructions (If sedation given, give patient instructions): Genital Herpes Simplex (ED), Sexually Transmitted Diseases (ED) Additional Instructions: Take medication as directed. You will results will show up on your online chart. You should receive a call if there are any positive results. You may also call the emergency department for your lab results. If you results are negative you should stop taking this medication. Return to the emergency department if you experience new, concerning, or worsening symptoms. Prescriptions: Acyclovir [Zovirax] 800 mg PO TID #30 tab Is patient prescribed a controlled substance at d/c from ED?: No Referrals: Markell Becker III, MD [Primary Care Provider] - 1-2 days
[2022-12-09] MEDS ORDERED: ACYCLOVIR 400 MG/10 ML CUP PO ONE (12:45)
[2022-12-09 21:43] LABS: HSV I IgG Interp POSITIVE; HSV II IgG Interp Negative (Negative)
[2022-12-10 14:35] LABS: C. trachomatis,PCR Negative (Negative)
[2022-12-10 14:56] LABS: N. gonorrhoeae,PCR Negative (Negative)
== END 2022-12-09 13:08 | disposition home or self-care (01) ==
LOC: EC 10:21
DX: N89.8 Other specified noninflammatory disorders of vagina (principal); J45.909 Unspecified asthma, uncomplicated; E11.9 Type 2 diabetes mellitus without complications; I10 Essential (primary) hypertension; Z79.84 Long term (current) use of oral hypoglycemic drugs; Z79.899 Other long term (current) drug therapy
CPT/HCPCS: 36415; 81003; 86694; 86695; 86696; 87070; 87491; 87591; 87808; 99283

== ENCOUNTER → 2022-12-21 | Outpatient (CLI) | payer MEDICARE, OTHER ==
[2022-12-21 16:39] LABS: Appearance,Urine Clear (Clear); Bilirubin,Urine Negative (Negative); Blood,Urine Negative (Negative); Color,Urine Yellow (Yellow); Ketones,Urine Negative (Negative); Nitrite,Urine Negative (Negative); PH, Urine 6.5; Urobilinogen,Urine 0.2 E.U./DL
[2022-12-22 05:21] LABS: BUN/Creat Ratio 13.12 Ratio (12.00-20.00); Blood Urea Nitrogen 10.5 mg/dL (9.0-27.0); Calcium 10.1 mg/dL (8.7-10.3); Carbon Dioxide 27.6 mmol/L (21.6-31.8); Chloride 102 mmol/L (96-109); Glucose 149 mg/dL (70-110); Potassium 4.6 mmol/L (3.5-5.5); Sodium 140 mmol/L (135-145)
[2022-12-24 11:40] LABS: RBC 4.48; WBC 5.66
[2022-12-24 11:41] LABS: HCT 41.8; HGB 12.8
[2022-12-24 11:42] LABS: MCH 28.6; MCV 93.3
[2022-12-24 11:43] LABS: Platelet Count 263; RDW 13.2
[2022-12-24 11:44] LABS: Basophils % (A) 0.7; Eosinophils % (A) 2.1; Lymphocytes % (A) 39.6; Monocytes % (A) 6.7; Neutrophils % (A) 50.7
[2022-12-24 11:45] LABS: Lymphocytes # (A) 2.24; Monocytes # (A) 0.38; Neutrophils # (A) 2.87
[2022-12-24 11:46] LABS: Basophils # (A) 0.04; Eosinophils # (A) 0.12
[2022-12-24 11:47] LABS: MCHC 30.6
== END | disposition home or self-care (01) ==
LOC: LABWHC1 10:41
PROVIDERS: ATTEND Urology
DX: Z01.812 Encounter for preprocedural laboratory examination (principal); E10.9 Type 1 diabetes mellitus without complications; N21.1 Calculus in urethra; N20.1 Calculus of ureter; R35.0 Frequency of micturition
CPT/HCPCS: 80048; 81003; 85025; 87086

== ENCOUNTER 2022-12-28 09:19 | Day surgery (SDC) | payer MEDICARE, OTHER ==
[2022-12-23 14:39] VITALS: BMI 34.9
--- NOTE | 2022-12-28 07:44 | P.HPIHPCON ---
History of Present Illness H&P Date: 12/28/22 Chief Complaint: Ureteral stones This is a 52-year-old female history of gross hematuria, underwent a CT urogram that showed evidence of 2 distal ureteral stones. She symptomatically from her stone. Option of a right-sided ureteroscopy with holmium laser was discussed. discussed the risk which include but not limited to bleeding, infection, injury to the ureter. Risk of anesthesia also discussed with her. She understood all the risk and agreed to proceed Consent for Procedure: I have explained the operation/procedure to the patient, including the risks, benefits, side effects, alternative therapies (including not receiving the proposed treatment or service), the likelihood of the patient achieving his/her goals, and potential recuperation problems for the procedure/sedation/analgesia, as well as any blood products, if indicated. I also explained to the patient the risks, benefits and side effects of the alternatives, as well as the risks related to not receiving the proposed procedure, care, treatment, or services. Past Medical History Past Medical History: Diabetes Mellitus, Eye Disorder, GERD/Reflux Additional Past Medical History / Comment(s): Chronic low back pain with past L sided sciatica much improved since L4 back surgery years ago, migraines, NIDDM type II, L eye retinal detachment/blindness, enlarged liver, occasional abdominal pain, gastritis, RESOLVED-cellulitis L arm after cyst removal. KIDNEY STONES History of Any Multi-Drug Resistant Organisms: None Reported Past Surgical History: Back Surgery, Breast Surgery, Cholecystectomy, Tubal Ligation, Uterine Ablation Additional Past Surgical History / Comment(s): L4 back surgery, D&C, L breast biopsy x2, EGD, colonoscopy, cyst removed from L arm. Past Anesthesia/Blood Transfusion Reactions: Motion Sickness Additional Past Anesthesia/Blood Transfusion Reaction / Comment(s): DONATES PLASMA Smoking Status: Never smoker - Past Family History Mother Family Medical History: Asthma Additional Family Medical History / Comment(s): Mother from an asthmatic attack at the age of 46yrs. Father Family Medical History: Liver Disease Additional Family Medical History / Comment(s): Father of liver cirrhosis, he had ETOH abuse. Medications and Allergies Home Medications Medication Instructions Recorded Confirmed Type metFORMIN HCL [Glucophage XR] 750 mg PO BID 11/10/21 12/23/22 History Dulaglutide [Trulicity] 0.75 mg SQ WE 12/23/22 12/23/22 History Glimepiride [Amaryl] 1 mg PO AC-BRKFST 12/23/22 12/23/22 History Allergies Allergy/AdvReac Type Severity Reaction Status Date / Time No Known Allergies Allergy Verified 12/23/22 14:29 Surgical - Exam - General no distress, no pain - Eyes normal ocular movement, no pale - ENT normal nares, normal mucosa - Respiratory normal expansion, normal respiratory effort - Abdomen Abdomen: soft, non tender - Psychiatric oriented to time, oriented to person, oriented to place Assessment and Plan Assessment: All wire for right-sided ureteroscopy, with holmium laser lithotripsy, stone basketing and stent insertion
[~2022-12-28 09:19] MED LIST changes: +DEXAMETHASONE SOD PHOSPHATE 4 MG/ML 1 ML VIAL IV ONE; +HYDROmorphone 0.5 MG/0.5 ML SYRINGE IVP PRN; +LIDOCAINE 1% (10MG/ML) FOR IV START INTRADERMA PRN; -LIDOCAINE 1% 20 ML VIAL (10MG/ML) FOR IV START INTRADERMA PRN; +MIDAZOLAM 2 MG/2 ML VIAL IV PRN; +ONDANSETRON 4 MG/2 ML VIAL IVP ONE
--- NOTE | 2022-12-28 09:46 | XR ---
EXAMINATION TYPE: XR KUB DATE OF EXAM: 12/28/2022 9:33 AM INDICATION: Patient age:Female; 52 years old; Reason for study: KIDNEY STONES. COMPARISON: None. TECHNIQUE: One radiographic view of the abdomen was obtained. FINDINGS: The bowel gas pattern is nonspecific without dilated loops of small or large bowel. There i s no evidence for organomegaly or pneumoperitoneum. The osseous structures are intact. Prior right u reterovesicular junction calculus is not definitively visualized. No abnormal calcifications are pres ent. Fecal material and gas are demonstrated throughout the colon and rectum. Right upper quadrant c holecystectomy clips. IMPRESSION: 1. No definitive renal calculi visualized. Prior right ureterovesicular junction calculus is not def initively visualized. 2. Nonspecific bowel gas pattern without radiographic evidence for acute process.
[2022-12-28 10:52] LABS: Glucose,Whole Blood 127 mg/dL (70-110)
[2022-12-28] MEDS ORDERED: SUCCINYLCHOLINE CHLORIDE 200 MG/10 ML VIAL IV ONE (12:27)
[2022-12-28] MEDS ORDERED: LIDOCAINE 2% INJ 20 MG/ML (2 ML VIAL) ONE (12:27)
[2022-12-28] MEDS ORDERED: NEOSTIGMINE 1 MG/ML 10 ML VIAL ONE (12:27)
[2022-12-28] MEDS ORDERED: PROPOFOL 10 MG/ML 20 ML VIAL IV ONE (12:27)
[2022-12-28] MEDS ORDERED: GLYCOPYRROLATE 0.2 MG/ML 2 ML VIAL ONE (12:27)
[2022-12-28] MEDS ORDERED: ROCURONIUM 10 MG/ML (5 ML VIAL) IV ONE (12:27)
[2022-12-28] MEDS ORDERED: fentaNYL (PF) 50 MCG/ML 2 ML AMP ONE (12:27)
[2022-12-28] MEDS ORDERED: MIDAZOLAM 2 MG/2 ML VIAL ONE (12:27)
[2022-12-28 13:11] VITALS: TEMP 97.3
[2022-12-28 13:27] VITALS: RESP 16
--- NOTE | 2022-12-28 13:27 | P.OP ---
Date of Procedure: 12/28/22 Preoperative Diagnosis: Right ureteral stone, gross hematuria Postoperative Diagnosis: Gross hematuria Procedure(s) Performed: cystoscopy and Right ureteroscopy, Implants: none Anesthesia: CAITLINA Surgeon: Ricardo Le Estimated Blood Loss (ml): 1 Pathology: none sent Condition: stable Disposition: PACU Indications for Procedure: This is a 52-year-old female history of gross hematuria, underwent a CT urogram that showed evidence of 2 distal ureteral stones. She symptomatically from her stone. Option of a right-sided ureteroscopy with holmium laser was discussed. discussed the risk which include but not limited to bleeding, infection, injury to the ureter. Risk of anesthesia also discussed with her. She understood all the risk and agreed to procee Description of Procedure: Patient brought to the operating room, general anesthesia was induced. she was prepped and draped in sterile fashion and placed in a dorsal lithotomy position. Cystoscopy fitted 21-[place] sheath was inserted per urethra, cystoscopy was per formed which showed no abnormality within the bladder. At this time attention was carried to the right ureteral orifice, a semirigid ureteroscope was inserted per urethra and advanced up the right ureteral orifice, the scope was advanced all the way up to the proximal ureter which showed no evidence of stones. Pullback ureteroscopy was performed which showed no evidence of stones or injury to the ureter up. There was no ureteral edema, thus stent was not placed. The bladder was emptied at the end of the case. Patient tolerated procedure well was taken to recovery in stable condition
[2022-12-28 14:08] VITALS: BP 130/87; PULSE 88
== END 2022-12-28 14:30 | disposition home or self-care (01) ==
LOC: OR 09:19
PROVIDERS: ATTEND Urology
DX: N20.1 Calculus of ureter (principal); E11.9 Type 2 diabetes mellitus without complications; K21.9 Gastro-esophageal reflux disease without esophagitis; G89.29 Other chronic pain; G43.909 Migraine, unspecified, not intractable, without status migrainosus; K29.70 Gastritis, unspecified, without bleeding; Z79.84 Long term (current) use of oral hypoglycemic drugs; Z79.899 Other long term (current) drug therapy
CPT/HCPCS: 81025; 74018; 52351; J2250; J0330; J1100; J2710; J0690; J2405; J3010; J2704; J2001

== ENCOUNTER 2023-04-28 19:05 | Inpatient (IN) | payer MEDICARE, OTHER ==
--- NOTE | 2023-04-28 19:25 | ED ---
General Adult HPI - General Stated complaint: Chest Pain Time Seen by Provider: 04/28/23 19:08 - History of Present Illness Initial comments: 52-year-old female with a past medical history significant for type 2 diabetes, asthma, GERD presenting to the ED with a chief complaint of chest pain. Patient states prior to arrival police executed a search warrant at her house. States that the police came into her house armed with guns and had guns pointed at her. States that there were looking for her son who is involved with drugs. States during this started to experience pain in the middle of her chest. Patient describes pain as a pressure. Pain is a 7 on a 10 in severity. Pain does not radiate. No associated symptoms. Patient states that she was given aspirin and sublingual nitro by EMS which she states helped relieve the pain somewhat. At this time, states pain is still ongoing. Denies chest pain. No abdominal pain. No nausea, vomiting. No changes in bowel or bladder habits. No other complaints. - Related Data Home Medications Medication Instructions Recorded Confirmed metFORMIN HCL [Glucophage XR] 750 mg PO BID 11/10/21 12/28/22 Dulaglutide [Trulicity] 0.75 mg SQ WE 12/23/22 12/28/22 Glimepiride [Amaryl] 1 mg PO AC-BRKFST 12/23/22 12/28/22 Previous Rx's Medication Instructions Recorded Cephalexin [Keflex] 500 mg PO Q6HR 1 Days #4 cap 12/28/22 Ketorolac [Toradol] 10 mg PO Q6HR PRN #10 tab 12/28/22 Allergies Allergy/AdvReac Type Severity Reaction Status Date / Time No Known Allergies Allergy Verified 04/28/23 20:05 Review of Systems ROS Statement: Those systems with pertinent positive or pertinent negative responses have been documented in the HPI. ROS Other: All systems not noted in ROS Statement are negative. Past Medical History Past Medical History: Asthma, Diabetes Mellitus, Eye Disorder, GERD/Reflux, Hypertension Additional Past Medical History / Comment(s): Chronic low back pain with past L sided sciatica much improved since L4 back surgery years ago, migraines, NIDDM type II, L eye retinal detachment/blindness, enlarged liver, occasional abdominal pain, gastritis, cellulitis L arm after cyst removal. History of Any Multi-Drug Resistant Organisms: None Reported Past Surgical History: Back Surgery, Breast Surgery, Cholecystectomy, Tubal Ligation, Uterine Ablation Additional Past Surgical History / Comment(s): L4 back surgery, D&C, L breast biopsy x2, EGD, colonoscopy, cyst removed from L arm. Past Anesthesia/Blood Transfusion Reactions: Motion Sickness Additional Past Anesthesia/Blood Transfusion Reaction / Comment(s): DONATES PLASMA Smoking Status: Never smoker - Past Family History Mother Family Medical History: Asthma Additional Family Medical History / Comment(s): Mother from an asthmatic attack at the age of 46yrs. Father Family Medical History: Liver Disease Additional Family Medical History / Comment(s): Father of liver cirrhosis, he had ETOH abuse. General Exam Limitations: no limitations General appearance: alert, in no apparent distress ENT exam: Present: normal exam Neck exam: Present: normal inspection Respiratory exam: Present: normal lung sounds bilaterally Cardiovascular Exam: Present: regular rate, normal rhythm GI/Abdominal exam: Present: soft (No tenderness to palpation. No rebound guarding or rigidity.) Neurological exam: Present: alert, oriented X3 Skin exam: Present: warm, dry Course Vital Signs 04/28/23 20:14 Temperature 98.6 F Pulse Rate 84 Respiratory 18 Rate Blood Pressure 146/97 O2 Sat by Pulse 100 Oximetry Medical Decision Making - Medical Decision Making Was pt. sent in by a medical professional or institution ([facility], [employer], urgent c are, hospital, or intermediate...) When possible be specific @ -No Did you speak to anyone other than the patient for history (EMS, parent, family, police, friend...)? What history was obtained from this source @ -No Did you review nursing and triage notes (agree or disagree)? Why? @ -I reviewed and agree with nursing and triage notes Were old charts reviewed (outside hosp., previous admission, EMS record, old EKG, old radiological studies, urgent care reports/EKG's, intermediate records)? Report findings @ -No old charts were reviewed Differential Diagnosis (chest pain, altered mental status, abdominal pain women, abdominal pain men, vaginal bleeding, weakness, fever, dyspnea, syncope, headache, dizziness, GI bleed, back pain, seizure, CVA, palpatations, mental health, musculoskeletal)? @ -Differential Chest Pain: Stable Angina, Unstable Angina, STEMI, NSTEMI Aortic Dissection, Pneumothorax, Musculoskeletal, Esophageal Spasm GERD, Cholecystitis, Pancreatitis, Zoster, this is not meant to be an all-inclusive list. EKG interpreted by me (3pts min.). @ -As above X-rays interpreted by me (1pt min.). @ -X-ray of the chest interpreted by me showing no evidence of acute finding. CT interpreted by me (1pt min.). @ -None done U/S interpreted by me (1pt. min.). @ -None done What testing was considered but not performed or refused? (CT, X-rays, U/S, labs)? Why? @ -None What meds were considered but not given or refused? Why? @ -None Did you discuss the management of the patient with other professionals (professionals i.e. , PA, [employer], lab, RT, psych nurse, elementary school social worker, door repairman, teacher, psychological operations officer, immigration case manager)? Give summary @ -No Was smoking cessation discussed for >3mins.? @ -No Was critical care preformed (if so, how long)? @ -No Were there social determinants of health that impacted care today? How? (Homelessness, low income, unemployed, alcoholism, drug addiction, transportation, low edu. Level, literacy, decrease access to med. care, intermediate, rehab)? @ -No Was there de-escalation of care discussed even if they declined (Discuss DNR or withdrawal of care, Hospice)? DNR status @ -No What co-morbidities impacted this encounter? (DM, HTN, Smoking, COPD, CAD, Cancer, CVA, ARF, Chemo, Hep., AIDS, mental health diagnosis, sleep apnea, m orbid obesity)? @ -Type 2 diabetes, asthma Was patient admitted / discharged? Hospital course, mention meds given and route, prescriptions, significant lab abnormalities, going to OR and other pertinent info. @ -Admission 52-year-old female presenting to the ED with a chief complaint of chest pain after police entered her house with their guns drawn. Laboratory studies reviewed and did show a elevated troponin at 0.057. Patient started on heparin. Patient received aspirin and nitro by EMS. Patient will be admitted with consult to cardiology. Discussed plan. Patient was in agreement. Undiagnosed new problem with uncertain prognosis? @ -No Drug Therapy requiring intensive monitoring for toxicity (Heparin, Nitro, Insulin, Cardizem)? @ -No Were any procedures done? @ -No Diagnosis/symptom? @ -Chest pain Acute, or Chronic, or Acute on Chronic? @ -Acute Uncomplicated (without systemic symptoms) or Complicated (systemic symptoms)? @ -Uncomplicated Side effects of treatment? @ -No Exacerbation, Progression, or Severe Exacerbation? @ -No Poses a threat to life or bodily function? How? (Chest pain, [place], [place], pneumonia, PE, COPD, DKA, ARF, appy, cholecystitis, CVA, Diverticulitis, Homicidal, Suicidal, threat to staff... and all critical care pts) @ -Yes, chest pain - Lab Data Result diagrams: 04/28/23 19:58 04/28/23 19:58 Lab Results 04/28/23 04/28/23 04/28/23 Range/Units 19:58 19:58 19:58 WBC 7.6 (3.8-10.6) k/uL RBC 4.30 (3.80-5.40) m/uL Hgb 13.3 (11.4-16.0) gm/dL Hct 39.2 (34.0-46.0) % MCV 91.2 (80.0-100.0) fL MCH 30.9 (25.0-35.0) pg MCHC 33.8 (31.0-37.0) g/dL RDW 13.2 (11.5-15.5) % Plt Count 236 (150-450) k/uL MPV 8.4 Neutrophils % 56 % Lymphocytes % 36 % Monocytes % 4 % Eosinophils % 2 % Basophils % 0 % Neutrophils # 4.2 (1.3-7.7) k/uL Lymphocytes # 2.8 (1.0-4.8) k/uL Monocytes # 0.3 (0-1.0) k/uL Eosinophils # 0.2 (0-0.7) k/uL Basophils # 0.0 (0-0.2) k/uL PT 10.5 (10.0-12.5) sec INR 0.9 (<1.2) APTT 23.8 (22.0-30.0) sec Sodium 138 (137-145) mmol/L Potassium 4.3 (3.5-5.1) mmol/L Chloride 104 (98-107) mmol/L Carbon Dioxide 22 (22-30) mmol/L Anion Gap 12 mmol/L BUN 17 (7-17) mg/dL Creatinine 0.72 (0.52-1.04) mg/dL Est GFR (CKD-EPI)AfAm >90 (>60 ml/min/1.73 sqM) Est GFR (CKD-EPI)NonAf >90 (>60 ml/min/1.73 sqM) Glucose 156 H (74-99) mg/dL Calcium 9.2 (8.4-10.2) mg/dL Magnesium 2.0 (1.6-2.3) mg/dL Total Bilirubin 0.4 (0.2-1.3) mg/dL AST 46 H (14-36) U/L ALT 41 H (4-34) U/L Alkaline Phosphatase 129 H (38-126) U/L Troponin I (0.000-0.034) ng/mL Total Protein 7.5 (6.3-8.2) g/dL Albumin 4.1 (3.5-5.0) g/dL 04/28/23 Range/Units 19:58 WBC (3.8-10.6) k/uL RBC (3.80-5.40) m/uL Hgb (11.4-16.0) gm/dL Hct (34.0-46.0) % MCV (80.0-100.0) fL MCH (25.0-35.0) pg MCHC (31.0-37.0) g/dL RDW (11.5-15.5) % Plt Count (150-450) k/uL MPV Neutrophils % % Lymphocytes % % Monocytes % % Eosinophils % % Basophils % % Neutrophils # (1.3-7.7) k/uL Lymphocytes # (1.0-4.8) k/uL Monocytes # (0-1.0) k/uL Eosinophils # (0-0.7) k/uL Basophils # (0-0.2) k/uL PT (10.0-12.5) sec INR (<1.2) APTT (22.0-30.0) sec Sodium (137-145) mmol/L Potassium (3.5-5.1) mmol/L Chloride (98-107) mmol/L Carbon Dioxide (22-30) mmol/L Anion Gap mmol/L BUN (7-17) mg/dL Creatinine (0.52-1.04) mg/dL Est GFR (CKD-EPI)AfAm (>60 ml/min/1.73 sqM) Est GFR (CKD-EPI)NonAf (>60 ml/min/1.73 sqM) Glucose (74-99) mg/dL Calcium (8.4-10.2) mg/dL Magnesium (1.6-2.3) mg/dL Total Bilirubin (0.2-1.3) mg/dL AST (14-36) U/L ALT (4-34) U/L Alkaline Phosphatase (38-126) U/L Troponin I 0.057 H* (0.000-0.034) ng/mL Total Protein (6.3-8.2) g/dL Albumin (3.5-5.0) g/dL - EKG Data EKG Comments: EKG shows a sinus rhythm at 92 beats for minute without acute ST or T-wave changes. IL 153, QRS 101, QT/QTc 348/398. Disposition Clinical Impression: Chest pain Disposition: ADMITTED IP TO THIS HOSP Condition: Good Referrals: Penny Redd MD [Primary Care Provider] - 1-2 days Time of Disposition: 21:07
[2023-04-28] MEDS ORDERED: SODIUM CHLORIDE 0.9% 1,000 ML IV STA (19:30)
[2023-04-28] MEDS ORDERED: LORazepam 1 MG TAB PO STA (19:32)
[2023-04-28 20:13] LABS: Basophils % (A) 0 %; Eosinophils # (A) 0.2 k/uL (0-0.7); Eosinophils % (A) 2 %; HCT 39.2 % (34.0-46.0); HGB 13.3 gm/dL (11.4-16.0); Lymphocytes # (A) 2.8 k/uL (1.0-4.8); Lymphocytes % (A) 36 %; MCH 30.9 pg (25.0-35.0); MCHC 33.8 g/dL (31.0-37.0); MCV 91.2 fL (80.0-100.0); Mean Platelet Volume 8.4; Monocytes # (A) 0.3 k/uL (0-1.0); Monocytes % (A) 4 %; Neutrophils # (A) 4.2 k/uL (1.3-7.7); Neutrophils % (A) 56 %; Platelet Count 236 k/uL (150-450); RDW 13.2 % (11.5-15.5); WBC 7.6 k/uL (3.8-10.6)
[2023-04-28 20:27] LABS: ALT 41 U/L (4-34); AST 46 U/L (14-36); African American GFR (CKD) >90 (>60 ml/min/1.73 sqM); Albumin 4.1 g/dL (3.5-5.0); Alkaline Phosphatase 129 U/L (38-126); Anion Gap 12 mmol/L; Blood Urea Nitrogen 17 mg/dL (7-17); Calcium 9.2 mg/dL (8.4-10.2); Carbon Dioxide 22 mmol/L (22-30); Chloride 104 mmol/L (98-107); Glucose 156 mg/dL (74-99); Non-African American GFR(CKD) >90 (>60 ml/min/1.73 sqM); Potassium 4.3 mmol/L (3.5-5.1); Sodium 138 mmol/L (137-145); Total Bilirubin 0.4 mg/dL (0.2-1.3); Total Protein 7.5 g/dL (6.3-8.2)
[2023-04-28 20:32] LABS: INR 0.9 (<1.2); Partial Thromboplastin Time 23.8 sec (22.0-30.0); Prothrombin Time 10.5 sec (10.0-12.5)
--- NOTE | 2023-04-28 20:35 | XR ---
EXAMINATION TYPE: XR chest 2V DATE OF EXAM: 04/28/2023 8:29 PM CLINICAL INDICATION:Female, 52 years old with history of Chest Pain. COMPARISON: Chest radiographs from TECHNIQUE: XR chest 2V Frontal and lateral views of the chest. FINDINGS: Lungs/Pleura: There is no evidence of pleural effusion, focal consolidation, or pneumothorax. Subsegm ental atelectasis is noted in the lung bases. Pulmonary vascularity: Unremarkable. Heart/mediastinum: Cardiomediastinal silhouette is unremarkable. Musculoskeletal: No acute osseous pathology. IMPRESSION: No acute cardiopulmonary disease/process.
[2023-04-28] MEDS ORDERED: HYDROmorphone 0.5 MG/0.5 ML SYRINGE IVP PRN (21:08)
[2023-04-28] MEDS ORDERED: HEPARIN SODIUM 1,000 UN/ML (10ML VL) IV PRN (21:08)
[2023-04-28] MEDS ORDERED: NALOXONE 0.4 MG/ML 1 ML VIAL IV PRN (21:08)
[2023-04-28] MEDS ORDERED: HEPARIN SODIUM 1,000 UN/ML (10ML VL) IV ONE (21:08)
[2023-04-28] MEDS ORDERED: ONDANSETRON 4 MG/2 ML VIAL IVP PRN (21:08)
[2023-04-28] MEDS ORDERED: HYDROmorphone 1 MG/ML 1 ML SYRINGE IVP PRN (21:08)
[2023-04-28] MEDS ORDERED: HEPARIN SOD,PORK IN 0.45% NACL 25,000 UNIT in 0.45% NACL 1 250ML.BAG IV SCH (21:15)
[2023-04-28 21:16] LABS: Appearance,Urine Clear (Clear); Bilirubin,Urine Negative (Negative); Blood,Urine Negative (Negative); Color,Urine Yellow; Glucose,Urine (UA) Negative (Negative); Ketones,Urine Negative (Negative); Nitrite,Urine Negative (Negative); Protein,Urine Trace (Negative); Specific Gravity,Urine >1.030 (1.001-1.035); Urobilinogen,Urine <2.0 mg/dL (<2.0)
[2023-04-28 21:17] LABS: Leukocyte Esterase,Urine Moderate (Negative)
[2023-04-28 21:29] LABS: Calcium Oxalate Crystals,Urine Few /hpf; Mucus,Urine Few /hpf; RBC,Urine 1 /hpf (0-5); Squamous Epithelial Cell,Urine 2 /hpf (0-4); WBC,Urine <1 /hpf (0-5)
[2023-04-28] MEDS: SODIUM CHLORIDE 0.9% 1,000 ML IV SCH (21:52)
[2023-04-29] MEDS ORDERED: ATORVASTATIN 80 MG TAB PO STA ×2 (01:49→09:40)
--- NOTE | 2023-04-29 01:52 | P.HPIM ---
History of Present Illness H&P Date: 04/28/23 Patient is a 52-year-old female with a PMH of type II DM, hypertension, hyperlipidemia who presents to the emergency room with complaints of chest discomfort. Patient reports that she was at her home at her baseline when suddenly police entered with guns drawn telling her to get on the ground. They were reportedly looking for a family member who was not there. Patient reports that the stress of the event triggered and epigastric chest discomfort, 7 out of 10, nonradiating, nonpleuritic, constant, with no alleviating or exacerbating features. Reports that her pain has now resolved. Denied experiencing associated shortness of breath, nausea, diaphoresis, or dizziness. In the emergency room, a chest x-ray was unremarkable. EKG revealed sinus rhythm at [address]/T-wave changes noted as reviewed by me. Laboratory evaluation was remarkable for troponin of 0.057, glucose 156, AST 46, and ALT 41, with an unremarkable UA. ED documentation reviewed and case discussed with ED provider. Review of systems: Pertinent positives and negatives as discussed in HPI, a complete review of systems was performed and all other systems are negative. Physical examination: Vital signs reviewed General: non toxic, no distress, appears at stated age, morbidly obese Derm: no unusual rashes/lesions, warm Head: atraumatic, normocephalic, symmetric Eyes: EOMI, no lid lag, anicteric sclera, pupils equal round reactive to light ENT: Nose and ears atraumatic Neck: No cervical lymphadenopathy, trachea midline, supple Mouth: no lip lesion, mucus membranes moist Cardiovascular: S1S2 reg, no murmur, positive dorsalis pedis pulse bilateral, no edema Lungs: CTA bilateral, no rhonchi, no rales, no accessory muscle use Abdominal: soft, nontender to palpation, no guarding Ext: muscle strength 5 out of 5 in all 4 extremities grossly, no gross muscle atrophy, no contractures, Neuro: CN II-XI grossly intact, no gross focal neuro deficits Psych: Alert, oriented, appropriate affect Assessment: Non-ST elevation TN Chronic conditions: Type II DM, hypertension, hyperlipidemia Imaging: In the emergency room, a chest x-ray was unremarkable. EKG revealed sinus rhythm at [address]/T-wave changes noted as reviewed by me. Data Review: Laboratory evaluation was remarkable for troponin of 0.057, glucose 156, AST 46, and ALT 41, with an unremarkable UA. Plan: Continue with aspirin, statin. Patient received aspirin by EMS Continue heparin infusion Cardiac monitoring Trend troponin Cardiology consulted Insulin sliding scale and glucose monitoring Continue home medications DVT prophylaxis: Heparin infusion The patient is admitted with an anticipated greater than 2 midnight stay for evaluation of NSTEMI CODE STATUS: Full Code Discussed with: Patient Anticipated discharge place: Home Past Medical History Past Medical History: Asthma, Diabetes Mellitus, Eye Disorder, GERD/Reflux, Hypertension Additional Past Medical History / Comment(s): Chronic low back pain with past L sided sciatica much improved since L4 back surgery years ago, migraines, NIDDM type II, L eye retinal detachment/blindness, enlarged liver, occasional abdominal pain, gastritis, cellulitis L arm after cyst removal. History of Any Multi-Drug Resistant Organisms: None Reported Past Surgical History: Back Surgery, Breast Surgery, Cholecystectomy, Tubal Lig ation, Uterine Ablation Additional Past Surgical History / Comment(s): L4 back surgery, D&C, L breast biopsy x2, EGD, colonoscopy, cyst removed from L arm. Past Anesthesia/Blood Transfusion Reactions: Motion Sickness Additional Past Anesthesia/Blood Transfusion Reaction / Comment(s): DONATES PLASMA Smoking Status: Never smoker - Past Family History Mother Family Medical History: Asthma Additional Family Medical History / Comment(s): Mother from an asthmatic attack at the age of 46yrs. Father Family Medical History: Liver Disease Additional Family Medical History / Comment(s): Father of liver cirrhosis, he had ETOH abuse. Medications and Allergies Home Medications Medication Instructions Recorded Confirmed Type Atorvastatin [Lipitor] 40 mg PO DIRECTED 04/28/23 04/28/23 History Dulaglutide [Trulicity] 3 mg SQ WE 04/28/23 04/28/23 History Glimepiride [Amaryl] 2 mg PO DAILY 04/28/23 04/28/23 History lisinopriL [Zestril] 10 mg PO DAILY 04/28/23 04/28/23 History Allergies Allergy/AdvReac Type Severity Reaction Status Date / Time No Known Allergies Allergy Verified 04/28/23 22:19 Physical Exam Vitals: Vital Signs Temp Pulse Resp BP Pulse Ox 04/28/23 22:00 91 16 140/92 99 04/28/23 21:00 87 15 146/97 100 04/28/23 20:14 98.6 F 84 18 146/97 100 04/28/23 20:00 82 18 139/96 100 Intake and Output 04/28/23 04/28/23 04/29/23 14:59 22:59 06:59 Other: Weight 104.326 kg Results CBC & Chem 7: 04/28/23 19:58 04/28/23 19:58 Labs: Abnormal Lab Results - Last 24 Hours (Table) 04/28/23 04/28/23 04/28/23 Range/Units 19:58 19:58 20:05 Glucose 156 H (74-99) mg/dL AST 46 H (14-36) U/L ALT 41 H (4-34) U/L Alkaline Phosphatase 129 H (38-126) U/L Troponin I 0.057 H* (0.000-0.034) ng/mL Calcium Oxalate Crystal Few H (None) /hpf Urine Mucus Few H (None) /hpf
[2023-04-29 04:27] LABS: Basophils % (A) 0 %; Eosinophils # (A) 0.2 k/uL (0-0.7); Eosinophils % (A) 2 %; HCT 38.7 % (34.0-46.0); HGB 12.6 gm/dL (11.4-16.0); Lymphocytes # (A) 2.7 k/uL (1.0-4.8); Lymphocytes % (A) 36 %; MCH 29.9 pg (25.0-35.0); MCHC 32.7 g/dL (31.0-37.0); MCV 91.6 fL (80.0-100.0); Mean Platelet Volume 8.2; Monocytes # (A) 0.3 k/uL (0-1.0); Monocytes % (A) 4 %; Neutrophils # (A) 4.3 k/uL (1.3-7.7); Neutrophils % (A) 56 %; Platelet Count 218 k/uL (150-450); RBC 4.22 m/uL (3.80-5.40); RDW 13.2 % (11.5-15.5); WBC 7.7 k/uL (3.8-10.6)
[2023-04-29 04:41] LABS: Partial Thromboplastin Time 38.6 sec (22.0-30.0); Prothrombin Time 10.7 sec (10.0-12.5)
[2023-04-29 07:37] LABS: Glucose,Whole Blood 125 mg/dL (70-110)
[2023-04-29] MEDS: INSULIN ASPART (NovoLOG) 100 UNIT/ML VIAL SQ SCH ×4 (08:47→21:07)
[2023-04-29] MEDS: lisinopriL 10 MG TAB PO SCH (08:48)
[2023-04-29] MEDS: ASPIRIN 81 MG PO SCH (08:48)
[2023-04-29] MEDS ORDERED: METOPROLOL TARTRATE 12.5 MG TAB PO SCH (09:30)
[2023-04-29] MEDS ORDERED: ALPRAZolam 0.5 MG TAB PO PRN (09:40)
[2023-04-29] MEDS ORDERED: ALPRAZolam 0.25 MG TAB PO PRN (09:40)
[2023-04-29] MEDS ORDERED: NITROGLYCERIN SL TABS 0.4 MG TAB SUBLINGUAL PRN (09:40)
[2023-04-29] MEDS ORDERED: ASPIRIN 325 MG TAB PO STA (09:40)
[2023-04-29] MEDS ORDERED: ASPIRIN 81 MG PO ONE (10:05)
[2023-04-29] MEDS: SODIUM CHLORIDE 0.9% 1,000 ML IV SCH ×2 (10:45→21:07)
[2023-04-29] MEDS ORDERED: LIDOCAINE 1% INJ 10MG/ML (20 ML MDV) ONE (11:06)
[2023-04-29] MEDS ORDERED: VERAPAMIL 2.5 MG/ML 2 ML AMP ONE (11:06)
[2023-04-29] MEDS ORDERED: IV FLUID CONTINUATION 1,000 ML IV ONE (11:30)
[2023-04-29] MEDS ORDERED: HEPARIN SODIUM 1,000 UN/ML (10ML VL) ONE (11:31)
[2023-04-29] MEDS ORDERED: fentaNYL (PF) 50 MCG/ML 2 ML AMP ONE (11:31)
[2023-04-29] MEDS ORDERED: MIDAZOLAM 2 MG/2 ML VIAL IVP ONE (11:41)
[2023-04-29] MEDS ORDERED: fentaNYL (PF) 50 MCG/ML 2 ML AMP IVP ONE (11:41)
[2023-04-29] MEDS ORDERED: LIDOCAINE 1% INJ 10MG/ML (20 ML MDV) SQ ONE (11:42)
[2023-04-29] MEDS: VERAPAMIL SYRINGE (5 MG/10 ML) INTRAARTER ONE ×2 (11:43→11:58)
[2023-04-29] MEDS ORDERED: HEPARIN SODIUM 1,000 UN/ML (10ML VL) IV ONE (11:46)
[2023-04-29] MEDS ORDERED: IOPAMIDOL-370 100ML BTL INJ ONE ×2 (12:01)
--- NOTE | 2023-04-29 12:02 | P.CRDCN ---
History of Present Illness Consult date: 04/29/23 Consult reason: chest pain History of present illness: History of present illness: This is a 52-year-old female with past medical history of hypertension, hyperlipidemia diabetes mellitus type 2, asthma, gastro-esophageal reflux disease, chronic back pain and his sedentary lifestyle. 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 Patient presented to the emergency center by police from an executed search more of her house. Police were looking for her son involved with drugs. At that time she started having chest pain in the middle of her chest 10 in severity. Her blood pressure was checked and she was 169/100 She was given aspirin and sublingual nitroglycerin by EMS which relieved the pain somewhat. Patient has been started on heparin drip, and is seen today in the emergency center waiting for a bed on the cardiac stepdown unit. Patient states that she continued to have chest pain all night but seems to be better now. She denies history of smoking, no alcohol use, no drug use and no family history of coronary artery disease. EKG sinus rhythm mild ST changes on the second EKG Chest x-ray: No acute process CBC within normal limits. INR 1.0. Troponins 0.057, 1.75, 1.75. AST 46, ALT 41, alkaline phosphatase 129. Blood sugar 156. Urinalysis negative for infection. Home cardiac medications: Atorvastatin, lisinopril 10 mg daily Review Of Systems: At the time of my evaluation: Constitutional: No fever, no chills. No weakness, fatigue or lethargy. EENT: No headache. No dizziness. Lungs: No shortness of breath, cough, no sputum production. No wheezing. Cardiovascular: No chest pain, no lower extremity edema. No palpitations. No paroxysmal nocturnal dyspnea. No orthopnea. No lightheadedness or dizziness. No syncopal episodes. Abdominal: No abdominal pain. No nausea, vomiting. No diarrhea. No constipation. No bloody or tarry stools. Musculoskeletal: No myalgias. No muscle weakness, no frequent falls. + back pain. Integumentary: No wounds. No rash. No unusual bruising. Neurologic: No aphasia. No facial droop. No change in mentation. Physical examination: Gen: This is a 52-year-old obese female lying on the ER stretcher appears to be in no acute distress. VS: reviewed HEENT: Head is atraumatic, normocephalic. Pupils equal, round. Sclerae is anicteric. NECK: Supple. No JVD. LUNGS: Clear to auscultation. No wheezes or rhonchi. No intercostal retractions. HEART: Regular rate and rhythm. No murmur. ABDOMEN: Soft No tenderness. EXTREMITIES: No pedal edema. No calf tenderness. NEUROLOGICAL: Patient is awake, alert and oriented x3. Assessment: Elevated troponins possibly due to Non-ST elevated myocardial infarction rule out Takotsubo Hypertension Hyperlipidemia Diabetes mellitus type 2 Plan: Continue heparin drip Continue aspirin, statin, lisinopril and add a beta elías Make patient nothing by mouth Patient scheduled for cardiac catheterization today with Dr. Carrion Obtain 2-D echocardiogram and Doppler study to assess cardiac structure and function Further recommendations to follow based upon clinical course Thank you kindly for this consultation. Nurse practitioner note has been reviewed, I agree with documented findings and plan of care. Patient was seen and examined. Past Medical History Past Medical History: Asthma, Diabetes Mellitus, Eye Disorder, GERD/Reflux, Hypertension Additional Past Medical History / Comment(s): Chronic low back pain with past L sided sciatica much improved since L4 back surgery years ago, migraines, NIDDM type II, L eye retinal detachment/blindness, enlarged liver, occasional abdominal pain, gastritis, cellulitis L arm after cyst removal. History of Any Multi-Drug Resistant Organisms: None Reported Past Surgical History: Back Surgery, Breast Surgery, Cholecystectomy, Tubal Ligation, Uterine Ablation Additional Past Surgical History / Comment(s): L4 back surgery, D&C, L breast biopsy x2, EGD, colonoscopy, cyst removed from L arm. Past Anesthesia/Blood Transfusion Reactions: Motion Sickness Additional Past Anesthesia/Blood Transfusion Reaction / Comment(s): DONATES PLAS MA Smoking Status: Never smoker - Past Family History Mother Family Medical History: Asthma Additional Family Medical History / Comment(s): Mother from an asthmatic attack at the age of 46yrs. Father Family Medical History: Liver Disease Additional Family Medical History / Comment(s): Father of liver cirrhosis, he had ETOH abuse. Medications and Allergies Home Medications Medication Instructions Recorded Confirmed Type Atorvastatin [Lipitor] 40 mg PO DIRECTED 04/28/23 04/28/23 History Dulaglutide [Trulicity] 3 mg SQ WE 04/28/23 04/28/23 History Glimepiride [Amaryl] 2 mg PO DAILY 04/28/23 04/28/23 History lisinopriL [Zestril] 10 mg PO DAILY 04/28/23 04/28/23 History Allergies Allergy/AdvReac Type Severity Reaction Status Date / Time No Known Allergies Allergy Verified 04/28/23 22:19 Physical Exam Vitals: Vital Signs Temp Pulse Resp BP Pulse Ox 04/29/23 08:50 86 18 119/90 100 04/29/23 02:13 80 18 106/70 98 04/28/23 22:00 91 16 140/92 99 04/28/23 21:00 87 15 146/97 100 04/28/23 20:14 98.6 F 84 18 146/97 100 04/28/23 20:00 82 18 139/96 100 Intake and Output 04/28/23 04/29/23 04/29/23 22:59 06:59 14:59 Intake Total 87.167 Balance 87.167 Intake: Intake, IV Titration 87.167 Amount Heparin Sod,Pork in 0.45% 87.167 NaCl 25,000 unit In 0.45 % NaCl 1 250ml.bag @ 9. 585 UNITS/KG/HR 10 mls/hr IV .Q24H [facility] Rx#: [id number] Other: Weight 104.326 kg Results 04/29/23 03:49 04/28/23 19:58 Cardiac Enzymes 04/28/23 04/28/23 04/29/23 Range/Units 19:58 19:58 00:49 AST 46 H (14-36) U/L Troponin I 0.057 H* 1.750 H* (0.000-0.034) ng/mL 04/29/23 Range/Units 03:49 AST (14-36) U/L Troponin I 1.750 H* (0.000-0.034) ng/mL Coagulation 04/28/23 04/29/23 Range/Units 19:58 03:49 PT 10.5 10.7 (10.0-12.5) sec APTT 23.8 38.6 H (22.0-30.0) sec CBC 04/28/23 04/29/23 Range/Units 19:58 03:49 WBC 7.6 7.7 (3.8-10.6) k/uL RBC 4.30 4.22 (3.80-5.40) m/uL Hgb 13.3 12.6 (11.4-16.0) gm/dL Hct 39.2 38.7 (34.0-46.0) % Plt Count 236 218 (150-450) k/uL Comprehensive Metabolic Panel 04/28/23 Range/Units 19:58 Sodium 138 (137-145) mmol/L Potassium 4.3 (3.5-5.1) mmol/L Chloride 104 (98-107) mmol/L Carbon Dioxide 22 (22-30) mmol/L BUN 17 (7-17) mg/dL Creatinine 0.72 (0.52-1.04) mg/dL Glucose 156 H (74-99) mg/dL Calcium 9.2 (8.4-10.2) mg/dL AST 46 H (14-36) U/L ALT 41 H (4-34) U/L Alkaline Phosphatase 129 H (38-126) U/L Total Protein 7.5 (6.3-8.2) g/dL Albumin 4.1 (3.5-5.0) g/dL Current Medications Generic Name Dose Route Start Last Admin Trade Name Freq PRN Reason Stop Dose Admin Aspirin 81 mg 04/29/23 09:00 04/29/23 08:48 Aspirin 81 Mg PO 81 mg DAILY [facility] Administration Atorvastatin Calcium 80 mg 04/29/23 21:00 Atorvastatin 80 Mg Tab PO HS [facility] Heparin Sodium (Porcine) 0 unit 04/28/23 21:08 04/29/23 06:28 Heparin Sodium 1,000 Un/Ml (10ml Vl) IV 2,600 unit PER PROTOCOL PRN Administration Low PTT Protocol Heparin Sodium/Sodium Chloride 250 mls @ 10 mls/hr 04/28/23 21:15 04/29/23 06:29 25,000 unit/ Sodium Chloride IV 11.585 units/kg/hr .Q24H [facility] 12.086 mls/hr Titration Protocol 9.585 UNITS/KG/HR Sodium Chloride 1,000 mls @ 75 mls/hr 04/28/23 21:15 04/28/23 21:52 Saline 0.9% IV 75 mls/hr .[id number] [facility] Administration Insulin Aspart 0 unit 04/29/23 07:30 04/29/23 08:47 Insulin Aspart (Novolog) 100 Unit/Ml Vial SQ Not Given ACHS [facility] Protocol Lisinopril 10 mg 04/29/23 09:00 04/29/23 08:48 Lisinopril 10 Mg Tab PO 10 mg DAILY [facility] Administration Naloxone HCl 0.2 mg 04/28/23 21:08 Naloxone 0.4 Mg/Ml 1 Ml Vial IV Q2M PRN Opioid Reversal Ondansetron HCl 4 mg 04/28/23 21:08 Ondansetron 4 Mg/2 Ml Vial IVP Q8HR PRN Nausea And Vomiting Intake and Output 04/28/23 04/29/23 04/29/23 22:59 06:59 14:59 Intake Total 87.167 Balance 87.167 Intake: Intake, IV Titration 87.167 Amount Heparin Sod,Pork in 0.45% 87.167 NaCl 25,000 unit In 0.45 % NaCl 1 250ml.bag @ 9. 585 UNITS/KG/HR 10 mls/hr IV .Q24H [facility] Rx#: [id number] Other: Weight 104.326 kg 04/29/23 03:49 04/28/23 19:58
--- NOTE | 2023-04-29 12:35 | P.CARDCATH ---
Description of Procedure: PROCEDURES PERFORMED: Left heart catheterization, bilateral coronary angiography, left ventriculogram, ultrasound guided arterial access INDICATION: Non-STEMI CONSENT:I have discussed the risks, benefits and alternative therapies for the above-mentioned procedure and for both sedation/analgesia as well as necessary blood product administration, if indicated, as they pertain to this patient. The patient has indicated understanding and acceptance of the risks and procedures discussed. PROCEDURE: After the risks, benefits and alternatives of the above mentioned procedure explained in detail with the patient, informed consent was obtained. Patient was taken to the catheterization lab and prepped and draped in usual fashion. Ultrasound guidance was used to assess for arterial access. 1% lidocaine was used to anesthetize the right radial artery. A 6-[place] sheath was placed in the right radial artery using modified Seldinger technique and ultrasound guidance. Left coronary angiography was performed with a 5-[place] JL 3.5 catheter and right coronary angiography was performed with a 5-[place] JR5 catheter in various views. A 5-[place] FR5 catheter was inserted into the left ventricle and pressure measurements were obtained. A 6-[place] pigtail catheter was inserted in the left ventricle and left ventriculogram was performed with our injection in the TEJADA projection. The right radial sheath was removed and a TR band was placed with hemostasis achieved. The patient tolerated the procedure well. Patient was transported back to the post catheterization holding area in stable condition. Conscious Sedation: Patient was monitored under the direct supervision of myself for conscious sedation using Versed and fentanyl for a total duration of 14 minutes HEMODYNAMICS: Aorta: 105/72 LV: 101/8, LVEDP 20 SELECTIVE CORONARY ARTERIOGRAPHY: LEFT MAIN: The left main is a large caliber vessel which bifurcates into the LAD and circumflex. There is no significant stenosis. LEFT ANTERIOR DESCENDING CORONARY ARTERY: LAD is a large caliber vessel which wraps around to the apex. There is no significant stenosis. LEFT CIRCUMFLEX CORONARY ARTERY: Left circumflex is a moderate caliber vessel without significant stenosis. RIGHT CORONARY ARTERY: The right coronary artery is a large caliber vessel which gives off a PDA and PLV branch and is the dominant vessel. There is no significant stenosis. Left ventriculogram: Left ventricular ejection fraction 40% with mid cavitary hypokinesis not consistent with coronary anatomy consistent with Takotsubo's cardiomyopathy FINAL IMPRESSION: 1. Normal coronary arteries as described above. 2. Mildly elevated left sided filling pressures 3. 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 Aggressive risk factor modification per most recent ACC/AHA guidelines. 2. Follow-up in the office in 1-2 weeks.
[2023-04-29] MEDS: METOPROLOL SUCCINATE (ER) 25 MG TAB.ER.24H PO SCH (13:09)
--- NOTE | 2023-04-29 15:40 | P.PN ---
Subjective Progress Note Date: 04/29/23 Patient is a 52-year-old female with a PMH of type II DM, hypertension, hyperlipidemia who presents to the emergency room with complaints of chest discomfort. Patient reports that she was at her home at her baseline when suddenly police entered with guns drawn telling her to get on the ground. They were reportedly looking for a family member who was not there. Patient reports that the stress of the event triggered and epigastric chest discomfort, 7 out of 10, nonradiating, nonpleuritic, constant, with no alleviating or exacerbating features. Reports that her pain has now resolved. Denied experiencing associated shortness of breath, nausea, diaphoresis, or dizziness. In the emergency room, a chest x-ray was unremarkable. EKG revealed sinus rhythm at [address]/T-wave changes noted as reviewed by me. Laboratory evaluation was remarkable for troponin of 0.057, glucose 156, AST 46, and ALT 41, with an unremarkable UA. 04/29. Patient seen and examined. Patient was seen after cardiac cath. Currently not in any pain. Denies shortness of breath. Vital signs stable REVIEW OF SYSTEMS: CONSTITUTIONAL: No fever, no malaise,. CARDIOVASCULAR: No chest pain, no palpitations, no syncope. PULMONARY: No shortness of breath, no cough, GASTROINTESTINAL: No diarrhea, no nausea, no vomiting, no abdominal pain. NEUROLOGICAL: No headaches, no weakness, PHYSICAL EXAMINATION: GENERAL: The patient is alert and oriented x3, not in any acute distress. Well d eveloped, well nourished. HEENT: Pupils are round and equally reacting to light. EOMI. No scleral icterus. No conjunctival pallor. Normocephalic, atraumatic. No pharyngeal erythema. No thyromegaly. CARDIOVASCULAR: S1 and S2 present. No murmurs, rubs, or gallops. PULMONARY: Chest is clear to auscultation, no wheezing or crackles. ABDOMEN: Soft, nontender, nondistended, normoactive bowel sounds. No palpable organomegaly. MUSCULOSKELETAL: No joint swelling or deformity. EXTREMITIES: No cyanosis, clubbing, or pedal edema. NEUROLOGICAL: Gross neurological examination did not reveal any focal deficits. SKIN: No rashes. 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 Continue same treatment. Continue with symptomatic treatment. Resume home medication. Monitor labs and vitals. DVT and GI prophylaxis. Further recommendations as per clinical course of the patient Dictation was produced using [employer] dictation software. please excuse any grammatical, word or spelling errors. Objective - Vital Signs Vital signs: Vital Signs Temp 98.3 F 04/29/23 12:55 Pulse 87 04/29/23 14:24 Resp 18 04/29/23 14:24 BP 111/77 04/29/23 14:24 Pulse Ox 97 04/29/23 14:24 FiO2 Intake & Output 04/28/23 04/29/23 04/29/23 18:59 06:59 18:59 Intake Total 87.167 993.962 Output Total 400 Balance 87.167 593.962 Weight 104.326 kg 104.326 kg Intake: IV 150 Intake, IV Titration 87.167 603.962 Amount Heparin Sod,Pork in 0.45% 87.167 78.962 NaCl 25,000 unit In 0.45 % NaCl 1 250ml.bag @ 9. 585 UNITS/KG/HR 10 mls/hr IV .Q24H [facility] Rx#: [id number] Sodium Chloride 0.9% 1, 525 000 ml @ 75 mls/hr IV . [id number] [facility] Rx#:[id number] Oral 240 Output: Urine 400 Other: Voiding Method Toilet # Voids 1 - Labs CBC & Chem 7: 04/29/23 03:49 04/28/23 19:58 Labs: Abnormal Lab Results - Last 24 Hours (Table) 04/28/23 04/28/23 04/28/23 Range/Units 19:58 19:58 20:05 APTT (22.0-30.0) sec Glucose 156 H (74-99) mg/dL POC Glucose (mg/dL) (70-110) mg/dL AST 46 H (14-36) U/L ALT 41 H (4-34) U/L Alkaline Phosphatase 129 H (38-126) U/L Troponin I 0.057 H* (0.000-0.034) ng/mL Calcium Oxalate Crystal Few H (None) /hpf Urine Mucus Few H (None) /hpf 04/29/23 04/29/23 04/29/23 Range/Units 00:49 03:49 03:49 APTT 38.6 H (22.0-30.0) sec Glucose (74-99) mg/dL POC Glucose (mg/dL) (70-110) mg/dL AST (14-36) U/L ALT (4-34) U/L Alkaline Phosphatase (38-126) U/L Troponin I 1.750 H* 1.750 H* (0.000-0.034) ng/mL Calcium Oxalate Crystal (None) /hpf Urine Mucus (None) /hpf 04/29/23 04/29/23 Range/Units 07:36 09:28 APTT 47.6 H (22.0-30.0) sec Glucose (74-99) mg/dL POC Glucose (mg/dL) 125 H (70-110) mg/dL AST (14-36) U/L ALT (4-34) U/L Alkaline Phosphatase (38-126) U/L Troponin I (0.000-0.034) ng/mL Calcium Oxalate Crystal (None) /hpf Urine Mucus (None) /hpf
[2023-04-29 16:16] LABS: Glucose,Whole Blood 111 mg/dL (70-110)
[2023-04-29 19:41] LABS: Glucose,Whole Blood 164 mg/dL (70-110)
[2023-04-29] MEDS ORDERED: ATORVASTATIN 80 MG TAB PO SCH (21:00)
[2023-04-30] MEDS ORDERED: ACETAMINOPHEN TAB 325 MG TAB PO STA (05:12)
[2023-04-30 06:10] LABS: Glucose,Whole Blood 110 mg/dL (70-110)
[2023-04-30] MEDS: INSULIN ASPART (NovoLOG) 100 UNIT/ML VIAL SQ SCH ×2 (06:27→11:27)
[2023-04-30] MEDS ORDERED: HEPARIN SODIUM,PORCINE 10,000 UNIT in SODIUM CHLORIDE 0.9% 1,000 ML IRRIGATION PRN (07:00)
[2023-04-30] MEDS ORDERED: HEPARIN SODIUM,PORCINE (1 ML) 2,500 UNIT in SODIUM CHLORIDE 0.9% 250 ML IRRIGATION PRN (07:00)
[2023-04-30] MEDS ORDERED: ACETAMINOPHEN TAB 325 MG TAB PO PRN (09:04)
[2023-04-30] MEDS: ASPIRIN 81 MG PO SCH (09:05)
[2023-04-30] MEDS: lisinopriL 10 MG TAB PO SCH (09:05)
[2023-04-30] MEDS: METOPROLOL SUCCINATE (ER) 25 MG TAB.ER.24H PO SCH (09:05)
[2023-04-30 10:41] VITALS: RESP 18
[2023-04-30] MEDS: SODIUM CHLORIDE 0.9% 1,000 ML IV SCH (11:09)
[2023-04-30 11:26] LABS: Glucose,Whole Blood 130 mg/dL (70-110)
--- NOTE | 2023-04-30 11:30 | P.PN ---
Subjective Progress Note Date: 04/30/23 History of present illness: This is a 52-year-old female with past medical history of hypertension, hyper lipidemia diabetes mellitus type 2, asthma, gastro-esophageal reflux disease, chronic back pain and his sedentary lifestyle. 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 Patient presented to the emergency center by police from an executed search more of her house. Police were looking for her son involved with drugs. At that time she started having chest pain in the middle of her chest /10 in severity. Her blood pressure was checked and she was 169/100 She was given aspirin and sublingual nitroglycerin by EMS which relieved the pain somewhat. Patient has been started on heparin drip, and is seen today in the emergency center waiting for a bed on the cardiac stepdown unit. Patient states that she continued to have chest pain all night but seems to be better now. She denies history of smoking, no alcohol use, no drug use and no family history of coronary artery disease. EKG sinus rhythm mild ST changes on the second EKG Chest x-ray: No acute process CBC within normal limits. INR 1.0. Troponins 0.057, 1.75, 1.75. AST 46, ALT 41, alkaline phosphatase 129. Blood sugar 156. Urinalysis negative for infection. Home cardiac medications: Atorvastatin, lisinopril 10 mg daily 04/04 Yesterday, patient underwent LHC which revealed no significant CAD but left ventricular EF 40% with mild cavitary hypokinesis most consistent with Takotsubo cardiomyopathy. Reviewed results of the cardiac cath with the patient. She denies any chest pain or shortness of breath. She does complain of headache today. No nitrates are on board. Physical examination: Gen: This is a 52-year-old obese female resting in chair and appears to be in no acute distress. VS: reviewed HEENT: Head is atraumatic, normocephalic. Pupils equal, round. Sclerae is anicteric. NECK: Supple. No JVD. LUNGS: Clear to auscultation. No wheezes or rhonchi. No intercostal retractions. HEART: Regular rate and rhythm. No murmur. ABDOMEN: Soft No tenderness. EXTREMITIES: No pedal edema. No calf tenderness. NEUROLOGICAL: Patient is awake, alert and oriented x3. Assessment: Elevated troponins due to Takotsubo Hypertension Hyperlipidemia Diabetes mellitus type 2 Plan: Continue aspirin, statin, lisinopril and beta elías Obtain Echocardiogram prior to discharge Patient is cleared for discharge and may follow up in the office in 1-2 weeks. Nurse practitioner note has been reviewed, I agree with documented findings and plan of care. Patient was seen and examined. Objective - Vital Signs Vital signs: Vital Signs Temp 98.2 F 04/30/23 08:00 Pulse 89 04/30/23 08:00 Resp 18 04/30/23 08:00 BP 129/90 04/30/23 08:00 Pulse Ox 98 04/30/23 08:00 FiO2 Intake & Output 04/29/23 04/30/23 04/30/23 18:59 06:59 18:59 Intake Total 1103.962 350 Output Total 400 Balance 703.962 350 Weight 104.326 kg 105.1 kg Intake: IV 150 Intake, IV Titration 603.962 Amount Heparin Sod,Pork in 0.45% 78.962 NaCl 25,000 unit In 0.45 % NaCl 1 250ml.bag @ 9. 585 UNITS/KG/HR 10 mls/hr IV .Q24H [facility] Rx#: [id number] Sodium Chloride 0.9% 1, 525 000 ml @ 75 mls/hr IV . [id number] [facility] Rx#:[id number] Oral 350 350 Output: Urine 400 Other: Voiding Method Toilet # Voids 1 - Labs CBC & Chem 7: 04/29/23 03:49 04/28/23 19:58 Labs: Abnormal Lab Results - Last 24 Hours (Table) 04/29/23 04/29/23 04/30/23 Range/Units 16:12 19:39 11:23 POC Glucose (mg/dL) 111 H 164 H 130 H (70-110) mg/dL
[2023-04-30 12:15] VITALS: BP 115/76; PULSE 76; TEMP 97.8
--- NOTE | 2023-04-30 13:10 | P.DS ---
Providers Date of admission: 04/28/23 20:54 Expected date of discharge: 04/30/23 Attending physician: Mc Hernandez MD Consults: 04/28/23 21:08 Consult Physician Urgent Consulting Provider: [facility] Consult Reason/Comments: Chest pain, elevated trop Do you want consulting provider notified?: Yes Primary care physician: [facility] Course: Discharge diagnoses; Elevated troponins due to Takotsubo Hypertension Hyperlipidemia Diabetes mellitus type 2 Hospital course; Patient is a 52-year-old female with a PMH of type II DM, hypertension, hyperlipidemia who presents to the emergency room with complaints of chest discomfort. Patient reports that she was at her home at her baseline when suddenly police entered with guns drawn telling her to get on the ground. They were reportedly looking for a family member who was not there. Patient reports that the stress of the event triggered and epigastric chest discomfort, 7 out of 10, nonradiating, nonpleuritic, constant, with no alleviating or exacerbating features. Reports that her pain has now resolved. Denied experiencing associated shortness of breath, nausea, diaphoresis, or dizziness. In the emergency room, a chest x-ray was unremarkable. EKG revealed sinus rhythm at [address]/T-wave changes noted as reviewed by me. Laboratory evaluation was remarkable for troponin of 0.057, glucose 156, AST 46, and ALT 41, with an unremarkable UA. 04/29. Patient seen and examined. Patient was seen after cardiac cath. Currently not in any pain. Denies shortness of breath. Vital signs stable 04/30. Patient seen and examined. Status post cardiac cath showing Normal coronary arteries , Mildly elevated left sided filling pressures, LV EF 40% with mid cavitary hypokinesis most consistent with mid cavitary Takotsubo's cardiomyopathy. Cardiology recommended discharging patient on aspirin, statin, lisinopril and beta elías. PHYSICAL EXAMINATION: GENERAL: The patient is alert and oriented x3, not in any acute distress. Well developed, well nourished. HEENT: Pupils are round and equally reacting to light. EOMI. No scleral icterus. No conjunctival pallor. Normocephalic, atraumatic. No pharyngeal erythema. No thyromegaly. CARDIOVASCULAR: S1 and S2 present. No murmurs, rubs, or gallops. PULMONARY: Chest is clear to auscultation, no wheezing or crackles. ABDOMEN: Soft, nontender, nondistended, normoactive bowel sounds. No palpable organomegaly. MUSCULOSKELETAL: No joint swelling or deformity. EXTREMITIES: No cyanosis, clubbing, or pedal edema. NEUROLOGICAL: Gross neurological examination did not reveal any focal deficits. SKIN: No rashes. Dictation was produced using [employer] dictation software. please excuse any grammatical, word or spelling errors. Patient Condition at Discharge: Good Plan - Discharge Summary Discharge Rx Participant: No New Discharge Prescriptions: New Aspirin 81 mg PO DAILY 30 Days #30 tab Metoprolol Succinate (ER) [Toprol XL] 12.5 mg PO DAILY 30 Days #30 tab Continue Glimepiride [Amaryl] 2 mg PO DAILY Atorvastatin [Lipitor] 40 mg PO DIRECTED lisinopriL [Zestril] 10 mg PO DAILY Dulaglutide [Trulicity] 3 mg SQ WE Discharge Medication List Atorvastatin [Lipitor] 40 mg PO DIRECTED 04/28/23 [History] Dulaglutide [Trulicity] 3 mg SQ WE 04/28/23 [History] Glimepiride [Amaryl] 2 mg PO DAILY 04/28/23 [History] lisinopriL [Zestril] 10 mg PO DAILY 04/28/23 [History] Aspirin 81 mg PO DAILY 30 Days #30 tab 04/30/23 [Rx] Metoprolol Succinate (ER) [Toprol XL] 12.5 mg PO DAILY 30 Days #30 tab 04/30/23 [Rx] Follow up Appointment(s)/Referral(s): Penny Redd MD [Primary Care Provider] - 1-2 days Jim Carrion DO [STAFF PHYSICIAN] - 1 Week Discharge Disposition: HOME SELF-CARE
== END 2023-04-30 14:02 | disposition home or self-care (01) | DRG 287 ==
LOC: EC 19:05 → 3SCARD 20:54
PROVIDERS: ADMIT Internal Medicine; ATTEND Internal Medicine
PROC: B2151ZZ Fluoroscopy of Left Heart using Low Osmolar Contrast (ICD-10-PCS; 2023-04-29)
PROC: 4A023N7 Measurement of Cardiac Sampling and Pressure, Left Heart, Percutaneous Approach (ICD-10-PCS; principal; 2023-04-29 13:00)
PROC: B2111ZZ Fluoroscopy of Multiple Coronary Arteries using Low Osmolar Contrast (ICD-10-PCS; 2023-04-29 13:00)
DX: I51.81 Takotsubo syndrome (principal); H33.22 Serous retinal detachment, left eye; E11.319 Type 2 diabetes mellitus with unspecified diabetic retinopathy without macular edema; I10 Essential (primary) hypertension; E78.5 Hyperlipidemia, unspecified; K21.9 Gastro-esophageal reflux disease without esophagitis; G89.29 Other chronic pain; M54.32 Sciatica, left side; H54.7 Unspecified visual loss; Z79.899 Other long term (current) drug therapy; Z79.84 Long term (current) use of oral hypoglycemic drugs; Z79.85 Long-term (current) use of injectable non-insulin antidiabetic drugs
CPT/HCPCS: 36415; 71046; 76937; 80053; 81001; 83735; 84484; 85025; 85610; 85730; 93005; 93458; 96361; 96365; 96366; 99285

== ENCOUNTER → 2023-06-06 | Outpatient (CLI) | payer MEDICARE, OTHER ==
--- NOTE | 2023-06-07 10:01 | CA ---
Transthoracic Echo Report Name: Beata Solis Age: 52 Gender: F : 1970 Exam Date: 06/06/2023 14:22 Exam Location: [place] [facility] Ht (in): 68 Wt (lb): 230 Ordering Physician: Jim Carrion DO ([email or web address]) Attending/Referring Phys: Clean Up Worker Jenna Stapleton [facility] Procedure CPT: Indications: I50.22 SYSTOLIC HEART FAILURE Cardiac Hx: Technical Quality: Fair Contrast 1: Total Dose (mL): Contrast 2: Total Dose (mL): MEASUREMENTS (Male / Female) Normal Values 2D ECHO LV Diastolic Diameter PLAX 4.6 cm 4.2 - 5.9 / 3.9 - 5.3 cm LV Systolic Diameter PLAX 3.2 cm IVS Diastolic Thickness 1.0 cm 0.6 - 1.0 / 0.6 - 0.9 cm LVPW Diastolic Thickness 0.8 cm 0.6 - 1.0 / 0.6 - 0.9 cm LV Relative Wall Thickness 0.4 LVOT Diameter 2.0 cm Ascending Aorta Diameter 3.2 cm M-MODE Aortic Root Diameter MM 2.6 cm LA Systolic Diameter MM 3.1 cm LA Ao Ratio MM 1.2 AV Cusp Separation MM 2.3 cm DOPPLER AV Peak Velocity 158.2 cm/s AV Peak Gradient 10.0 mmHg AV Mean Velocity 110.3 cm/s AV Mean Gradient 5.4 mmHg AV Velocity Time Integral 30.5 cm LVOT Peak Velocity 121.4 cm/s LVOT Peak Gradient 5.9 mmHg LVOT Velocity Time Integral 23.7 cm LVOT Stroke Volume 76.5 cm??? LVOT Stroke Volume Index 35.3 ml/m??? LVOT Cardiac Index 2553.4 cm???/min???m??? AV Area Cont Eq vti 2.5 cm??? AV Area Cont Eq pk 2.5 cm??? Mitral E Point Velocity 77.9 cm/s Mitral A Point Velocity 84.6 cm/s Mitral E to A Ratio 0.9 MV Deceleration Time 140.6 ms LV E' Lateral Velocity 15.3 cm/s Mitral E to LV E' Lateral Ratio 5.1 LV E' Septal Velocity 7.2 cm/s Mitral E to LV E' Septal Ratio 10.8 TR Peak Velocity 159.4 cm/s TR Peak Gradient 10.2 mmHg Right Atrial Pressure 3.0 mmHg Pulmonary Artery Systolic Pressu 13.2 mmHg Right Ventricular Systolic Press 13.2 mmHg FINDINGS Left Ventricle Mildly increased septal wall thickness. Left ventricular cavity size normal. Normal left ventricular systolic function with no obvious regional wall motion abnormalities. Left ventricular ejection fraction is estimated at 55-60%. Right Ventricle Normal right ventricular size. Right Atrium Normal right atrial size. Left Atrium Left atrial size at the upper limits of normal. Mitral Valve Mitral valve thickened. Trace to mild mitral regurgitation. Aortic Valve Trileaflet aortic valve. Trace aortic regurgitation. Tricuspid Valve Structurally normal tricuspid valve. Trace tricuspid regurgitation. Pulmonic Valve Pulmonic valve not well visualized. Mild pulmonic regurgitation. Pericardium No pericardial effusion. Aorta Normal size aortic root and proximal ascending aorta. CONCLUSIONS Normal LV systolic function Overall normal intracardiac valves beside mild aortic regurgitation Previewed by: Dr. Oscar Cloud MD (Electronically Signed) Final Date: 07 June 2023 10:00
== END | disposition home or self-care (01) ==
LOC: RADECHMAIN 14:11
PROVIDERS: ATTEND Internal Medicine
DX: I35.1 Nonrheumatic aortic (valve) insufficiency (principal); I50.22 Chronic systolic (congestive) heart failure; I51.81 Takotsubo syndrome
CPT/HCPCS: 93306

== ENCOUNTER → 2023-10-06 | Outpatient (CLI) | payer MEDICARE, OTHER ==
--- NOTE | 2023-10-06 14:37 | MM ---
Reason for Exam: Screening (asymptomatic). Last mammogram was performed 1 year(s) and 1 month(s) ago. Indicated Problems: Pain of the left side. Patient History: Menarche at age 11. First Full-Term at age 20. Postmenopausal. Hormonal Contraceptives, starting at age 19. 09/15/2007, Excisional Biopsy on the Left side. 11/11/2014, Benign Core Biopsy on the left side. 08/15/2007, Bilateral Benign Core Biopsy. Paternal cousin had breast cancer. Risk Values: Agnes 5 year model risk: 1.5%. NCI Lifetime model risk: 11.1%. Prior Study Comparison: 11/04/2015 Bilateral Screening Mammogram, [facility]. 07/16/2016 Bilateral Diagnostic Mammogram, [facility]. 09/13/2017 Bilateral Screening Mammogram, [facility]. 09/19/2018 Bilateral Diagnostic Mammogram, [facility]. 06/05/2020 Bilateral Screening Mammogram, [facility]. 08/04/2021 Bilateral Screening Mammogram, [facility]. 09/09/2022 Bilateral MG 3D screening mammo w/cad, [facility]. Tissue Density: The breasts are almost entirely fatty. Findings: Analyzed By CAD. Left breast biopsy clip. Right breast: There is no suspicious group of microcalcifications or new suspicious mass. Left breast: There is no suspicious group of microcalcifications or new suspicious mass. Overall Assessment: Negative, BI-RAD 1 Management: Screening Mammogram of both breasts in [address] [facility] will attempt to contact patient to return for supplemental views and ultrasound if indicated. Patient should continue monthly self-breast exams. A clinical breast exam by your physician is recommended on an annual basis. This exam should not preclude additional follow-up of suspicious palpable abnormalities. Note on Agnes scores and lifetime risk: 1. A Agnes score greater than 3% is considered moderate risk. If this is the case, consider specialist referral to assess eligibility for a risk reducing agent. 2. If overall lifetime risk for the development of breast cancer is 20% or higher, the patient may qualify for future screening with alternating mammogram and breast MRI. Electronically signed and approved by: Jean Rogel DO
== END | disposition home or self-care (01) ==
LOC: RADMAMWWP 13:00
PROVIDERS: ATTEND Family Medicine
DX: Z12.31 Encounter for screening mammogram for malignant neoplasm of breast (principal); Z80.3 Family history of malignant neoplasm of breast; Z78.0 Asymptomatic menopausal state
CPT/HCPCS: 77063; 77067

== ENCOUNTER → 2023-10-11 | Outpatient (CLI) | payer MEDICARE, OTHER ==
[2023-10-11 11:43] LABS: African American GFR (CKD) >90 (>60 ml/min/1.73 sqM); Blood Urea Nitrogen 12 mg/dL (7-17); Non-African American GFR(CKD) 87 (>60 ml/min/1.73 sqM)
--- NOTE | 2023-10-11 12:54 | CT ---
EXAMINATION TYPE: CT abdomen pelvis w con DATE OF EXAM: 10/11/2023 COMPARISON: 11/23/2022 INDICATION: Gross hematuria x1mo. DLP: 1753.3 mGycm, Automated exposure control for dose reduction was used. CONTRAST: 100 ml mL of Isovue 300. Study performed without Oral Contrast TECHNIQUE: Axial images were obtained from above the diaphragm to the pubic rami in the axial plane a t 5 mm thick sections. Reconstructed images are reviewed on the computer in the coronal plane. FINDINGS: Limited CT sections are obtained the lung bases. The lung bases are clear. CT ABDOMEN: Liver: There is moderate fatty infiltration of the liver. Spleen: Normal Pancreas: Atrophic Adrenal glands: The adrenal glands are normal. Gallbladder: Surgically absent. Kidneys: No masses are evident. No hydronephrosis is present. No cysts are present. Delayed images were obtained through the kidneys, which remain unremarkable. Aorta: Normal Inferior vena cava: Normal. CT PELVIS: Loops of bowel within the abdomen and pelvis are normal. There are loops of bowel which are incom pletely distended or lack oral contrast limiting their evaluation. Appendix: Normal as visualized. Urinary bladder: Normal. Genitourinary structures: Uterus and ovaries are unremarkable Osseous structures: No suspicious lytic or sclerotic lesions. IMPRESSION: 1. No suspicious abnormality account for hematuria. 2. Moderate fatty infiltration of the liver
== END | disposition home or self-care (01) ==
LOC: RADCTMAIN 11:05
PROVIDERS: ATTEND Family Medicine
DX: K76.0 Fatty (change of) liver, not elsewhere classified (principal); R12 Heartburn; R31.0 Gross hematuria
CPT/HCPCS: 82565; 84520; 74177; 36415; Q9967

== ENCOUNTER → 2025-01-24 | Outpatient (CLI) | payer MEDICARE, OTHER ==
--- NOTE | 2025-01-24 11:29 | MM ---
Reason for Exam: Screening (asymptomatic). Last mammogram was performed 1 year(s) and 3 month(s) ago. Patient History: Menarche at age 11. First Full-Term at age 20. Postmenopausal. Hormonal Contraceptives, starting at age 19. 09/15/2007, Excisional Biopsy on the Left side. 11/11/2014, Benign Core Biopsy on the left side. 08/15/2007, Bilateral Benign Core Biopsy. Paternal cousin had breast cancer. Risk Values: Agnes 5 year model risk: 1.6%. NCI Lifetime model risk: 10.9%. Prior Study Comparison: 08/04/2021 Bilateral Screening Mammogram, [facility]. 09/09/2022 Bilateral MG 3D screening mammo w/cad, [facility]. 10/06/2023 Bilateral MG 3D screening mammo w/cad, [facility]. Tissue Density: The breasts are heterogeneously dense, which may obscure small masses. Findings: Analyzed By CAD. Left breast biopsy clip. Right breast: There is no suspicious group of microcalcifications or new suspicious mass. Left breast: There is no suspicious group of microcalcifications or new suspicious mass. Overall Assessment: Benign, BI-RAD 2 Management: Screening Mammogram of both breasts in [address] [facility] will attempt to contact patient to return for supplemental views and ultrasound if indicated. Patient should continue monthly self-breast exams. A clinical breast exam by your physician is recommended on an annual basis. This exam should not preclude additional follow-up of suspicious palpable abnormalities. Note on Agnes scores and lifetime risk: 1. A Agnes score greater than 3% is considered moderate risk. If this is the case, consider specialist referral to assess eligibility for a risk reducing agent. 2. If overall lifetime risk for the development of breast cancer is 20% or higher, the patient may qualify for future screening with alternating mammogram and breast MRI. [facility], , 01/24/2025 11:26 AM. Electronically signed and approved by: Jean Rogel DO
== END | disposition home or self-care (01) ==
LOC: RADMAMWWP 08:42
PROVIDERS: ATTEND Family Medicine
DX: Z12.31 Encounter for screening mammogram for malignant neoplasm of breast (principal); R92.333 Mammographic heterogeneous density, bilateral breasts; Z78.0 Asymptomatic menopausal state; Z80.3 Family history of malignant neoplasm of breast; Z92.0 Personal history of contraception
CPT/HCPCS: 77063; 77067